=== PATIENT | male | born 1975 | race Caucasian/White ===

== ENCOUNTER 2018-12-16 08:50 | Outpatient (CLI) | payer OTHER, SELFPAY ==
--- NOTE | 2018-12-16 08:23 | DI.RAD_ITS ---
SYMPTOMS/DIAGNOSIS: F/U OF AC JOINT SEPARATION, RT AC JOINT PAIN RIGHT CLAVICLE: There has been no change in the alignment at the AC joint, with the clavicle projecting superior to the acromion. Calcifications are again noted in the subcoracoid region. Degenerative changes of the glenohumeral joint are again noted. IMPRESSION: No change in AC joint, degenerative changes or joint space loose bodies.
== END 2018-12-16 09:10 ==
PROVIDERS: PCP Emergency Medicine; Visit Provider Physician Assistant
DX: M25.511 Pain in right shoulder (principal); S43.101D Unspecified dislocation of right acromioclavicular joint, subsequent encounter
CPT/HCPCS: 73000

== ENCOUNTER 2019-03-13 01:15 | Outpatient (CLI) | payer OTHER, SELFPAY ==
--- NOTE | 2019-03-13 08:02 | DI.RAD_ITS ---
SYMPTOMS/DIAGNOSIS: PRIMARY OSTEOARTHRITIS, M19.011 RIGHT SHOULDER INJECTION: Fluoroscopy Time: 19.4 sec Under fluoroscopic guidance, Dr. Portillo positioned a needle in the right shoulder joint. Please see the procedure report for further information.
--- NOTE | 2019-03-13 10:09 | OPPNE_ITS ---
Date of service: 03/13/19 Time of Service: 10:08 Procedure Note Date of procedure: 03/13/19 Procedure: Right Shoulder Injection Surgeon/Proceduralist/Physician: Blake Portillo Procedure Diagnosis: Right Shoulder OA Procedure Indications: Michael has had persistent pain of the RIGHT shoulder. Noninvasive measures have been tried. To serve as both diagnostic and therapeutic, an injection under fluoroscopy was recommended. I had discussed the risks of the procedure and the patient elected to proceed. Procedure Description: Michael was greeted in the flouroscopy room. The correct side was identified and the consent was reviewed with the patient and signed. The patient was then placed in the supine position on the fluoroscopy table. The RIGHT shoulder was then prepped with Chloraprep. The anterior injection starting point was identiifed by bony landmarks and fluoroscopy. The skin and soft tissue in the tract of the injection was anesthetized with 1% Lidocaine. A spinal needle was then inserted deep into the shoulder joint at the level of the recess between the glenoid and superior humeral head. A small amount of Omn ipaque solution was injected to confirm intraarticular placement. Once confirmed, the shoulder was injected with 4cc of 0.5% Bupivicaine and 80mg of Depo-Medrol. A bandaid was placed on the injection site. The patient tolerated the procedure well and noted improvement in pre-injection pain.
[2019-03-13] MEDS: Omnipaque 300 MG/ML 10 ML BTL IJ (14:11)
[2019-03-13] MEDS: methylPREDNISolone ACETATE 80 MG/ML VIAL IM (14:11)
[2019-03-13] MEDS: Bupivacaine 0.5% Pres-Free 10 ML VIAL IJ (14:11)
== END 2019-03-13 01:35 ==
PROVIDERS: PCP Emergency Medicine; Visit Provider Student in an Organized Health Care Education/Training Program
DX: M19.011 Primary osteoarthritis, right shoulder (principal); M25.511 Pain in right shoulder
CPT/HCPCS: 20610; 77002; J1040

== ENCOUNTER 2020-08-04 14:35 | Outpatient (REF) | payer OTHER, SELFPAY ==
[2020-08-04 22:42] LABS: Anion Gap 9.1 mmol/L (3-11); BUN 10 mg/dL (7-18); CO2 28.9 mmol/L (21.0-32.0); CREATININE 1.25 mg/dL (0.70-1.30); Calcium 9.1 mg/dL (8.5-10.1); Calculated LDL 79 mg/dL (<100); Chloride 103 mmol/L (98-107); Cholesterol 165 mg/dL (<200); GGT 100 U/L (15-85); Glucose 116 mg/dL (74-106); HDL Cholesterol 48 mg/dL (40-60); Potassium 3.9 mmol/L (3.5-5.1); Sodium 141 mmol/L (136-145); Triglyceride 191 mg/dL (<150)
== END 2020-08-04 14:55 ==
LOC: LBN 14:35
PROVIDERS: PCP Emergency Medicine; Visit Provider Emergency Medicine
DX: I10 Essential (primary) hypertension (principal)
CPT/HCPCS: 80048; 80061; 82977

== ENCOUNTER 2021-08-18 15:17 | Outpatient (REF) | payer OTHER, SELFPAY ==
[2021-08-18 15:03] LABS: Hemoglobin A1C 5.4 % (<5.7)
[2021-08-18 15:07] LABS: ALT 49 U/L (16-63); AST 22 U/L (15-37); Albumin 4.1 g/dL (3.4-5.0); Alkaline Phosphatase 60 U/L (46-116); Anion Gap 6.4 mmol/L (3-11); BUN 14 mg/dL (7-18); Bilirubin, Direct 0.1 mg/dL (0.0-0.2); Bilirubin, Total 0.5 mg/dL (0.2-1.0); CO2 32.6 mmol/L (21.0-32.0); CREATININE 1.2 mg/dL (0.70-1.30); Calcium 9.2 mg/dL (8.5-10.1); Chloride 103 mmol/L (98-107); GGT 67 U/L (15-85); Glucose 92 mg/dL (74-106); Potassium 4.4 mmol/L (3.5-5.1); Sodium 142 mmol/L (136-145); Total Protein 7.5 g/dL (6.4-8.2)
== END 2021-08-18 15:18 | disposition home or self-care (01) ==
LOC: LBN 15:17
PROVIDERS: PCP Emergency Medicine; Visit Provider Emergency Medicine
DX: I10 Essential (primary) hypertension (principal); E11.9 Type 2 diabetes mellitus without complications; F10.10 Alcohol abuse, uncomplicated
CPT/HCPCS: 80048; 80076; 82977; 83036

== ENCOUNTER 2021-09-26 02:52 | Outpatient (CLI) | payer OTHER, SELFPAY ==
[2021-09-26 10:38] LABS: Source Nasal/Nares
[2021-09-26 14:26] LABS: COVID-19 PCR Negative (Negative)
== END 2021-09-26 02:53 | disposition home or self-care (01) ==
LOC: LBO 02:52
PROVIDERS: PCP Emergency Medicine; Visit Provider Surgery
DX: Z20.822 Contact with and (suspected) exposure to COVID-19 (principal)
CPT/HCPCS: 87635

== ENCOUNTER 2021-09-27 06:18 | Day surgery (SDC) | payer OTHER, SELFPAY ==
--- NOTE | 2021-09-26 14:13 | W.ANESPOSTOP ---
Postoperative Evaluation Date, Time and Location Date Performed: 09/26/21 Time Performed: 14:14 Patient Location: Day Surgery Unit Vital Signs Most Recent Manually Entered Vital Signs: Adult Blood Pressure: 169/68 Heart Rate: 67 Respirations: 18 Oxygen Saturation (%): 100 Temperature (C): 36.6 C Pain Score (0-10 Scale): 0 Assessment Mental Status: Awake (Alert & Oriented to Patient Baseline) Airway and Respiratory Function: Patent airway with normal (patient baseline) respiratory exam Cardiovascular Function: Hemodynamically Stable Hydration Status: Adequately Hydrated Nausea & Vomiting: No Nausea or Vomiting Pain: Pt. Denies Any Pain Peripheral Nerve Block: Patient did not receive a nerve block
--- NOTE | 2021-09-26 20:19 | HPE_ITS ---
Date of service: 09/27/21 Assessment and Plan Assessment and plan (1) Reducible right inguinal hernia: Status: Acute Assessment and plan: I discussed the nature of inguinal hernias with the pt . I discussed the surgery in detail and the complications related to the surgery and the anesthesia. Pt. understands this, all questions were answered to the patient satisfaction and they signed the consent for surgery. Patient was given an educational booklet. Risks of the surgery include but are not limited to: Bleeding/infection/pneumonia/damage to blood vessels or bladder or bowels/blood clots or PE/chronic pain/urinary retention/chronic numbness/reoccurrence/reaction to mesh requiring removal/damage to testicle or sterility/complications of anesthesia. The pt will have a pre-Op PE to ensure fitness for anesthesia. The procedure will be done with abx and under sterile conditions. The pt requires a ride home from surgery and someone to stay with the pt for 24 hrs after anesthesia. No lifting over 5 pounds for 2-3 weeks after surgery. He will need to take time off of work. History of Present Illness Narrative: RIH. Started to b/c painful.. No chronic coughing. No straining to urinate. Chronic constipation. When the hernia hurts he cannot move his bowels. He is currently on lifting restrictions. No prior surgery in the area. Pt is trying to make better lifestyle choices. No smoker/chews daily ETOH, NO PA/CVA/DM no prior anesthesia. No prior surgery Pt reports area in his right groin that has been present for years, recently I am changing what I am doing because of pain. Pt does note that he has white coat syndrome, just coming through the door changes everything. Adult BP cuff reading was 180/104, large cuff reading placed in history. Pt reports his pain is almost a zero this morning, gets worse at the end of the day or with lifting. Pt does report constipation in the pasts. Pt denies chest pain or any heart concerns in the past. Review of Systems All systems reviewed & are unremarkable except as noted in HPI and below PFSH Active Problem List Reducible right inguinal hernia (Acute) COVID (Acute) Biceps tendinitis of right shoulder (Chronic) Primary osteoarthritis, right shoulder (Chronic) Separation of right acromioclavicular joint, type 3 (Acute 11/23/17) Alcohol intake above recommended sensible limits (Acute) Chest pain (Acute) Essential hypertension (Acute) Inguinal hernia (Acute) Obesity (Acute) Continuous chewing tobacco dependence (Acute) Umbilical hernia without obstruction and without gangrene (Acute 04/03/18) Varicose veins of left lower extremity (Acute 02/29/16) Family History Father Heart disease Myocardial infarction Mother Essential hypertension Hyperlipidemia Sister No problems noted. Grandfather No problems noted. Grandfather Personal history of malignant neoplasm PROSTATE Grandmother Stroke Grandmother Stroke Social History Smoking/Tobacco Use Status: Current-Occasional Tobacco Type: smokeless tobacco Tobacco: How many years used: 30 Smokeless tobacco user: chewing tobacco Quit status: considering quitting Second Hand Exposure: Yes Smoking risk assessment performed?: Yes Alcohol Intake: current Alcohol Intake frequency: a few times a week Drug use: Never Substance use type: does not use Household members: spouse Housing: house Communication Needs: None Do you need help understanding health information?: Rarely Pets and animals: Yes Pets and animals: dog(s) Sexually active: Yes Do you think of yourself as: straight/heterosexual Current gender identity: male What is your relationship status?: How often do you talk on the phone with friends or family?: twice per week How often do you get together with friends or relatives?: once per week How often do you attend orthodoxy or faith services?: decline to answer Do you belong to any clubs or organized social groups?: no Panel score (0-1 are the most socially isolated patients): 2 Veronika/Adventism: Hoahaoism Special veronika needs: No Seatbelt use: always Helmet use: Yes Helmet use: always Drive intox or ride w/intox transfer driver: No Do you feel safe at home: Yes Do you feel safe in your relationship?: Yes Meds Allergies and Home Medications Allergies Allergy/AdvReac Type Severity Reaction Status Date / Time HAY FEVER Allergy Unknown Uncoded 09/26/21 10:16 Home Medications Medication Instructions Recorded Confirmed Type diphenhydramine HCl [Benadryl 25 mg PO DAILY PRN 02/05/13 09/26/21 History Allergy] multivitamin [Daily Multi-Vitamin] 1 ea PO DAILY 02/05/13 09/26/21 History hydrochlorothiazide 25 mg tablet 25 mg PO DAILY #90 tab 04/27/21 09/26/21 Rx aspirin 81 mg tablet,delayed 81 mg PO DAILY 09/05/21 09/26/21 History release loratadine 10 mg capsule 10 mg PO PRN cap 09/05/21 09/26/21 History Exam Resp Effort & Inspection: normal respiratory effort and able to speak in complete sentences Auscultation: clear to auscultation bilaterally Cardio Rate: regular rate Rhythm: regular rhythm GI Inspection: obesity Palpation: soft and nontender Auscultation: normal bowel sounds
--- NOTE | 2021-09-26 20:25 | PDOC.DSDIS_ITS ---
Discharge Plan Disposition Patient Disposition: HOME Condition: Good Discharge Details Reason For Visit: hernia repair Attending Provider: Nathaly Ortega Primary Care Provider: Alexis Rust Home Meds and New Rx's Prescriptions: New tramadol 50 mg tablet 50 mg PO Q6H PRN (Reason: pain >7) Qty: 14 RF: 0 Continued aspirin 81 mg tablet,delayed release (DR/EC) 81 mg PO DAILY RF: 0 multivitamin [Daily Multi-Vitamin] 1 EACH tablet 1 ea PO DAILY RF: 0 diphenhydramine HCl [Benadryl Allergy] 25 MG tablet 25 mg PO DAILY PRN RF: 0 hydrochlorothiazide 25 mg tablet 25 mg PO DAILY Qty: 90 RF: 4 loratadine [Claritin Liqui-Gel] 10 mg capsule 10 mg PO PRN RF: 0 Discharge Instructions Additional Instructions: Dr. Ortega HERNIA REPAIR ? POSTOPERATIVE INSTRUCTIONS Patients who have this type of surgery can usually be expected to return to work within two weeks and have minimal amounts of discomfort. ? ACTIVITY: The day of surgery should be spent resting. However, you can be up f or short periods of time, I.E., going to the bathroom or kitchen. Avoid lifting or straining. On the day following surgery, you can be up and about as desired. ? LIFTING: Restrict your lifting to no more than five (5) pounds for the first week following surgery. For the second week after surgery, don?t lift more than ten pounds. We will decide when you are done with restrictions and when you can return to work, at your follow-up appointment. No sexual activity for two weeks. ? DIET: There are no dietary restrictions following surgery. However, you may want to start with small amounts of liquids to avoid nausea the day of surgery. ? INCISION CARE: You will notice purple skin glue closing the incision. Do not peel this off- it will wear off on its own. After 24 hours you may shower. The dressing may be replaced for comfort, but is not necessary. An ice bag may be applied to the incision for 72 hours following surgery. ? SIGNS OF INFECTION: It is not unusual to have some black and blue discoloration of the skin around the incision, but also scrotum and penis. It will slowly disappear. If you have any increased redness, drainage, fever (above 100 degrees), please contact your doctor for an examination. ? DISCOMFORT: You may expect to have some mild discomfort at the incision sight. If severe pain develops you should contact your doctor for further instructions. ? URINATION: Patients who have surgery occasionally have problems urinating. If you experience problems and are not able to urinate within 6 hours following your surgery, please call your doctor immediately or go to your nearest Emergency Room for evaluation. ? DRIVING: NO driving for three (3) days after surgery, or if you are still taking narcotic pain medication. ? MEDICATIONS: Alternate Tylenol 1000mg by mouth every 8 hours and Ibuprofen 600mg every 6 hours. Make sure you take ibuprofen with food and not on an empty stomach. Take the Tylenol and ibuprofen continuously for the first 72hrs- not just when you have pain. Use the tramadol for breakthrough pain. Use ICE! Twenty minutes on, and then off, continuously for the first 72hours. If you are taking narcotic pain medication, follow the instructions on the label and do not drive. Pain medications can make you very constipated. Make sure you are moving your bowels daily. If not, take Miralax, milk of magnesia or magnesium citrate. Anesthesia makes you very constipated. Take a dose of milk of magnesia the morning after surgery. ? REPORT: Unusual swelling, severe pain, unresolved nausea, signs of infection, or difficulty in urination to your surgeon. Follow up in clinic with Dr. Ortega in 2 weeks. [phone] Stand Alone Forms: Anesthesia Discharge InstVani Bhat.Nerve Block Instructions Referrals: Nathaly Ortega DO [OSTEOPATHIC DOCTOR] - 10/13/21 10:30 am Activity:: see above Remove Dressings/Wound Care:: 24 hours Shower/Bathe:: 24 hours Diet:: As Tolerated Discharge Orders Discharge Orders: Discharge Order (Routine); Ordered 09/26/21 Ordered By: Nathaly Ortega DS: Diagnosis Discharge Diagnosis (1) Reducible right inguinal hernia: Status: Acute
[2021-09-27] VITALS (11 sets, daily range): BP systolic 107–146; BP diastolic 49–95; PULSE 69–81; RESP 16–25; TEMP 35.7–36.5; O2SAT 95–99; BMI 35.7
--- NOTE | 2021-09-27 06:39 | W.ANESPRE ---
General Info Date of Service Date Performed: 09/27/21 Height: 6 ft 2 in Weight: 126.4 kg Body Mass Index (BMI): 35.7 Surgical Procedure: Operation Date: 09/27/21 07:40 Proposed Procedures Side Surgeon p Herniorrhaphy Inguinal Right Nathaly Ortega DO Meds Allergies and Home Medications Allergies Allergy/AdvReac Type Severity Reaction Status Date / Time HAY FEVER Allergy Unknown Uncoded 09/27/21 06:33 Home Medication Medication Instructions Recorded diphenhydramine HCl [Benadryl 25 mg PO DAILY PRN 02/05/13 Allergy] multivitamin [Daily Multi-Vitamin] 1 ea PO DAILY 02/05/13 hydrochlorothiazide 25 mg tablet 25 mg PO DAILY #90 tab 04/27/21 aspirin 81 mg tablet,delayed 81 mg PO DAILY 09/05/21 release loratadine 10 mg capsule 10 mg PO PRN cap 09/05/21 Current Visit Medications: Current Medications Generic Name Dose Route Start Last Admin Trade Name Freq PRN Reason Stop Dose Admin Acetaminophen 1,000 mg 09/27/21 06:00 Acetaminophen 500 Mg Tab PO 09/27/21 16:00 PREOP EUGENE Gabapentin 600 mg 09/27/21 06:00 Gabapentin 300 Mg Cap PO 09/27/21 16:00 PREOP EUGENE Ringer's Solution 1,000 mls @ 80 mls/hr 09/27/21 06:00 IV 10/26/21 23:59 INFUSION EUGENE Cefazolin Sodium/Dextrose 2 gm in 50 mls @ 100 mls/hr 09/27/21 06:00 Ancef Duplex IVPB 09/27/21 16:00 PREOP EUGENE Ondansetron HCl 4 mg/ Sodium 52 mls @ 200 mls/hr 09/26/21 20:24 Chloride IVPB Q6H PRN PRN IV Miscellaneous Supplies 1 each 09/27/21 06:00 Iv Access IV 10/26/21 23:59 DIRECTED EUGENE Morphine Sulfate 2 mg 09/26/21 20:24 Morphine 4 Mg/Ml Syr IVP Q1H PRN PRN Sodium Chloride 0 ml 09/27/21 06:00 Normal Saline Flush 10 Ml Syr IV 10/26/21 23:59 PRN PRN Sodium Chloride 0 ml 09/27/21 06:00 Normal Saline 10 Ml Vial IJ 10/26/21 23:59 DIRECTED PRN Sterile Water 0 ml 09/27/21 06:00 Water,Injection,Sterile 10 Ml Vial IJ 10/26/21 23:59 DIRECTED PRN Tramadol HCl 50 mg 09/26/21 20:24 Tramadol 50 Mg Tab PO Q6H PRN PRN Pain PFSH Active Problems Active Problems: Problem Status Onset Code Reducible right inguinal hernia K40.90 COVID U07.1 Biceps tendinitis of right shoulder M75.21 Primary osteoarthritis, right shoulder M19.011 Separation of right acromioclavicular joint, type 3 11/23/17 S43.101A Alcohol intake above recommended sensible limits Z72.89 Chest pain R07.9 Essential hypertension I10 Inguinal hernia K40.90 Obesity E66.9 Continuous chewing tobacco dependence F17.220 Umbilical hernia without obstruction and without gangrene 04/03/18 K42.9 Varicose veins of left lower extremity 02/29/16 I83.92 Medical History Active Problem List Reducible right inguinal hernia (Acute) COVID (Acute) Biceps tendinitis of right shoulder (Chronic) Primary osteoarthritis, right shoulder (Chronic) Separation of right acromioclavicular joint, type 3 (Acute 11/23/17) Alcohol intake above recommended sensible limits (Acute) Chest pain (Acute) Essential hypertension (Acute) Inguinal hernia (Acute) Obesity (Acute) Continuous chewing tobacco dependence (Acute) Umbilical hernia without obstruction and without gangrene (Acute 04/03/18) Varicose veins of left lower extremity (Acute 02/29/16) Tobacco Smoking/Tobacco Use Status: Current-Occasional Tobacco Type: smokeless tobacco Tobacco: How many years used: 30 Smokeless tobacco user: chewing tobacco Quit Status: considering quitting Second hand exposure: Yes Alcohol Alcohol Intake: current Alcohol intake frequency: a few times a week Substance Use Substance use: Never Substance use type: does not use Vital Signs and Lab Results Vital Signs Most Recent Vital Signs in EMR: Most Recent Vital Signs Temp Pulse Resp BP Pulse Ox 36.5 C 75 18 146/95 H 97 09/27/21 06:37 09/27/21 06:37 09/27/21 06:37 09/27/21 06:37 09/27/21 06:37 Lab Results Blood Type / Crossmatch: No Data to Display Complete Blood Count: No Data to Display Complete Metabolic Panel: No Data to Display Liver Function Panel: No Data to Display Coagulation Panel: No Data to Display Cardiac Panel: No Data to Display Arterial Blood Gas: No Data to Display Venous Blood Gas: No Data to Display Pancreas Panel: No Data to Display Thyroid Panel: No Data to Display Infectious Disease: Coronavirus (COVID-19)(PCR) Negative (Negative) 09/26/21 09:25 09/26/21 Coronavirus 2019 Source Nasal/Nares 09/26/21 09:25 09/26/21 Blood Cultures: No Data to Display Toxicology Panel: No Data to Display Anesthesia Assessment and Plan Anesthesia History Personal History: No History of Anesthesia Complications Family History: No Family History of Anesthesia Complications Exercise Tolerance Exercise Tolerance: Metabolic Equivalents>4 Pertinent Negatives Pertinent Negatives: No Symptoms of GERD, No Major Cardiovascular Symptoms or Complaints, No Major Pulmonary Symptoms or Complaints and No History of CVA/TIA Cardiac & Pulmonary Exam Cardiac Exam: Normal S1/S2 Heart Sounds Pulmonary Exam: Clear Bilateral Breath Sounds Implantable Cardiac Device Does patient have a Pacemaker or an ICD?: No Airway Exam Known Difficult Airway: No Mallampati Class: 2 Mouth Opening: Normal (> 3cm) Thyromental Distance: Greater than 3 cm Facial Hair: Full [place] Neck Range of Motion: Full ROM Neck Circumference: Thick Teeth Condition: Normal Dentition ASA Classification ASA Score: ASA 2 Emergency Case?: No NPO Status NPO Status: NPO Clears >2 hours, Solids >8 hours Anesthesia Plan Resuscitation Status: Full Code Anesthesia Technique: General Anesthesia Airway Planned: Endotracheal Tube Pain Management: Surgeon and patient request nerve block Monitors Used: Standard Monitors
[2021-09-27] MEDS: Gabapentin 300 MG CAP 600 MG PO (06:43)
[2021-09-27] MEDS: Acetaminophen 500 MG TAB 1000 MG PO (06:43)
[2021-09-27] MEDS: Lactated Ringers 1,000 ML 80 ML IV (06:44)
[2021-09-27] MEDS: ceFAZolin 2 GM/50 ML BAG IVPB (07:44)
--- NOTE | 2021-09-27 08:31 | W.ANESNERVE ---
Nerve Block Single Injection Procedure Date and Time Date Performed: 09/27/21 Procedure Start: 07:54 Location Where Procedure Performed Procedure Location: Operating Room Procedure Stop: 08:04 Reason Performed: Postoperative Analgesia Requesting Provider: Nathaly Ortega Timeout Performed Timeout Performed: Yes Monitoring Used ECG, Blood Pressure, SpO2, ETCO2 and See EMR for corresponding vital signs Sterility Sterility: Hand Hygiene, Surgical Cap, Surgical Mask, Eye Protection and Chlorhexidine Sedation Given During Procedure Sedation Given (Indicate Dose Given): No Sedation given Patient Mental Status Patient Mental Status: Performed under general anesthesia Nerve Block 1st Nerve Block: Laterality: Right Block Type: TAP Unilateral Needle / Catheter Used: 120mm SonoPlex II Local Anesthetic Bolus (Indicate Dose Given): Injected in 3-5ml increments after negative blood aspiration, Bupivacaine 0.25% Dose:: 20 ml, Exparel Dose:: 10 ml and Ropivacaine 0.5% Dose:: 10 ml Additives (Indicate Dose Given): None Ultrasound: Sterile probe cover and gel used Ultrasound Image Saved?: Yes Nerve Stimulator: Not Used Paresthesia: None Procedure Tolerated: No Complications Procedure Outcome: Successful Performed By: Marylu Armstrong Supervised By: Brigette Adler
[2021-09-27] MEDS: Bupivacaine 0.25% Pres-Free 30 ML VIAL (10:00)
[2021-09-27] MEDS: Bupivacaine LIPOSOME/PF 133 MG/10 ML VIAL IJ (10:00)
--- NOTE | 2021-09-27 12:06 | W.ANESPOSTOP ---
Postoperative Evaluation Date, Time and Location Date Performed: 09/27/21 Time Performed: 12:06 Patient Location: Day Surgery Unit Vital Signs Most Recent Imported Vital Signs: Most Recent Vital Signs Temp Pulse Resp BP Pulse Ox 35.7 C L 71 18 124/84 96 09/27/21 11:37 09/27/21 11:37 09/27/21 11:37 09/27/21 11:37 09/27/21 11:37 Pain Score Most Recent Pain Score: Most Recent Pain Score Pain Level 0 09/27/21 11:55 Assessment Mental Status: Awake (Alert & Oriented to Patient Baseline) Airway and Respiratory Function: Patent airway with normal (patient baseline) respiratory exam Cardiovascular Function: Hemodynamically Stable Hydration Status: Adequately Hydrated Nausea & Vomiting: No Nausea or Vomiting Pain: Pt. Denies Any Pain Peripheral Nerve Block: Regional nerve block not resolved at time of post operative discharge
--- NOTE | 2021-09-27 22:30 | W.PM.OP ---
Date of service: 09/27/21 Time of Service: 10:00 Operative Note Operative Note DATE OF PROCEDURE: 09/27/21 PRE-OP DIAGNOSIS: symptomatic RIH POST-OP DIAGNOSIS: other (Indirect inguinal hernia and sac containing bowel- Moore's. And hydrocele) PROCEDURE: Open inguinal hernia repair with mesh. Excision and high ligation of the sac. Excision in the high ligation of omentum. Reduction and repair of hydrocele. Reconstruction of floor of the inguinal canal. SURGEON: Nathaly Jaramillo [employer] CRAFTSMAN: Valeria Stevens ANESTHESIA TYPE: Local By Surgeon, General LMA/ETT and Primary Nerve Block Refer to Anesthesia Record ESTIMATED BLOOD LOSS: 30 PATHOLOGY: none sent COMPLICATIONS: None Patient was transported to: PACU Patient's condition: stable Procedure Description: INDICATIONS: The pt is here today for surgery regarding symptomatic --- inguinal hernia that has failed outpatient conservative medical management and he is here today for repair. Informed consent was obtained, explaining risks and benefits of the procedure including but not limited to bleeding, infection, pneumonia, blood clots, chronic pain, chronic numbness, damage to testicle resulting in removal, recurrence of hernia, reaction to Mesh necessitating removal, and other unforetold complications, and complications of anesthesia-which were addressed by the VP [employer]. The patient is marked in preOp prior to the procedure DESCRIPTION OF PROCEDURE: The pt is then brought to the operative room suite. Anesthesia was administered per the Department of Anesthesia. A nerve block was performed by anesthesia under US guidance. the patient was prepped and draped in the usual sterile fashion using ChloraPrep scrub solution. Pause for the cause was done. He did receive preop IV antibiotics, and 30 mL of .25% Marcaine w/ epinephrine was used for local anesthetization. A #12 blade was used to make an incision over the external ring. Electrocautery used to provide hemostasis and dissect down to the fascia. The fascia was pretty much obliterated and there was nothing to open. 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 Considerable amount of time is taken to excise the sac the sac is opened the cecum and appendix do form portion of the wall of the sac. The sac is excised using the LigaSure. The cecum was then returned to the abdominal cavity. He has a large amount of omentum that is protruding through the hernia defect as well. This is excised using a LigaSure. The cord is elevated. The nerve was not identified. There medium is a cord lipomas. Electro-cautery is used to provide hemostasis. A Juan drain was placed around the cord to assist in mobilization. The cord was explored. There was is large 4 hernia sac on the cord. The sac is dissected off of the cord structures. The sac is opened. He does have a Moore's type of hernia where the appendix and cecum make up the wall of the hernia sac. The hernia sac is excised. The cecum and appendix are returned to the abdominal cavity. The appendix is healthy. He has a 6 x 8 inch piece of omentum that is protruding through the hernia defect as well. This is excised using LigaSure. There is no bleeding noted. The hernia sac does extend all the way down to the text testicle. He does have the hydrocele as well. Once we got to the hydrocele sac itself, we then opened and delivered the testis, drained clear fluid. There was moderate amount of scarring on the testis itself from the tunica vaginalis. It was then wrapped around the back and sutured in place with a running suture of 4-0 chromic in a Lord maneuver. Once this was done, a drain was placed in the base of the scrotum and then the testis was placed back into the scrotum in the proper orientation. A similar procedure was performed on the left, which has also had a hydrocele of the cord, which were both addressed and closed with Lord maneuver similarly. This testis also was normal but had moderate amount of scarring on the tunic vaginalis from this. A similar drain was placed. The testes were then placed back into the scrotum in a proper orientation, and the local wound instillation and wound block was then placed using 30 mL of 0.5% Marcaine without epinephrine. There is direct hernia pushing through the floor-. The hernia sac is dissected off the cord using a combination of blunt dissection and electrocautery. Electrocautery is used to provide hemostasis. returned to the abdominal cavity. A 3 x 6 inch piece of mesh is used to create a larger than normal standard plug and this is placed into the defect. The plug is than inserted into the defect through the internal ring, and over sewn to tighten up the ring with 2-0 vicryl. Please see RN notes from Lot number mesh . The cord structures are still able to freely move through the ring itself. The patch was then placed onto the floor, and using 2-0 Vicryl, sewn into the pubic tubercle and the shelving portions of the inguinal ligament, in the standard Lichenstein fashion. The tails of the mesh are brought around the cord, sewn together w/ 2-0 Vicryl, and tucked under the external oblique. The wound was copiously irrigated. There was no bleeding noted. The drain was removed. All structures are returned to normal anatomical position. The nerve is not sewn into the mesh, nor caught up in any sutures. The external oblique is re-approximated using 2-0 vicryl in a running fashion. Deep tissue was approximated with 3-0 Vicryl in a running fashion, and skin was approximated with 4-0 Monocryl in a running subcuticular fashion. Skin glue and sterile dressings are applied. The patient tolerated the procedure without complications to recovery in stable condition. NATHALY JARAMILLO, DO
== END 2021-09-27 13:20 | disposition home or self-care (01) ==
PROVIDERS: PCP Emergency Medicine; Visit Provider Surgery
PROC: (CPT 49505; principal; 2021-09-27 07:30)
DX: K40.90 Unilateral inguinal hernia, without obstruction or gangrene, not specified as recurrent (principal); N43.3 Hydrocele, unspecified; E66.9 Obesity, unspecified; I10 Essential (primary) hypertension; F17.220 Nicotine dependence, chewing tobacco, uncomplicated
CPT/HCPCS: 49505; 55500; 76942; C1781; J0690; J1100; J1885; J2001; J2250; J2405; J2704

== ENCOUNTER 2021-12-19 01:15 | Outpatient (CLI) | payer BC, SELFPAY ==
[2021-12-19] MEDS: Omnipaque 350 MG/ML 100 ML BTL IJ (14:47)
--- NOTE | 2021-12-19 14:48 | DI.CT_ITS ---
Exam(s) CT ABDOMEN PELVIS W EXAM: CT ABDOMEN PELVIS W CLINICAL HISTORY: RT testicular fluid after hernia/hydrocele repair,N50.89,Z98.890. TECHNIQUE: Imaging Protocol: Axial computed tomography images with coronal and sagittal reformatted images were created and reviewed CONTRAST MATERIAL: Intravenous: Omnipaque 350 Contrast volume:100 ml Oral: yes COMPARISON: US US OR ANESTHESIA from 09/27/2021 US US SCROTUM from 10/28/2021 FINDINGS: ABDOMEN: Lung Bases: Normal where visualized. Liver: Moderate fatty infiltration.. No measurable mass. Gallbladder and biliary tract: No radiodense calculus or dilation. Pancreas: Normal density, no abnormal calcifications or inflammatory process. Spleen: Normal. Kidneys: Normal size, contour and axis. No radiodense stones or obstructive uropathy. No masses seen. Cyst upper pole left kidney. Adrenal glands: No masses seen. Abdominal Aorta: Abdominal portion non-dilated. Soft tissues: Fatty containing umbilical hernia. PELVIS: Bladder: No gross wall thickening. No calculi.No focal mass. Bowel: Mild sigmoid diverticulosis. No obstruction or bowel wall thickening. Appendix normal. Peritoneal cavity: No ascites, collection or mesenteric inflammatory response. Bones: degenerative disc changes. Reproductive organs: Within normal limits. Lymph nodes: Unremarkable. Soft tissues: Evidence of previous right inguinal hernia repair. Fluid is identified in the right sc rotal sac which is partially included on the exam. There is a small fatty containing left inguinal h ernia present. Impression: Fluid in the right scrotal sac, partially included on the exam. Prior right inguinal hernia repair. Fatty containing left inguinal hernia. No acute abnormality is seen intra-abdominally. RADIATION DOSE DELIVERED: 1,645.41mGy.cm Total DLP DATA REPOSITORY: All CT scans at this facility are submitted to the National Radiology Data Registry (NRDR) Dose Index Registry (DIR) with the [employer] (ACR). RADIATION OPTIMIZATION: All CT scans at this facility use at least one of these dose optimization te chniques: automated exposure control; mA and/or kV adjustment per patient size (includes targeted exa ms where dose is matched to clinical indication); or iterative reconstruction.
[2021-12-19] MEDS: Breeza Beverage 473 ML BTL 950 ML PO (14:50)
== END 2021-12-19 01:35 ==
PROVIDERS: PCP Emergency Medicine; Visit Provider Surgery
DX: N50.89 Other specified disorders of the male genital organs (principal); K76.0 Fatty (change of) liver, not elsewhere classified; K42.9 Umbilical hernia without obstruction or gangrene; K40.90 Unilateral inguinal hernia, without obstruction or gangrene, not specified as recurrent; Z98.890 Other specified postprocedural states
CPT/HCPCS: 74177; 82565; J3490

== ENCOUNTER 2022-01-10 12:04 | Outpatient (CLI) | payer BC, SELFPAY ==
[2022-01-10 13:02] LABS: Abs Immature Grans 0.11 10^3/uL (0.0-0.06); Absolute Basophil Count 0.06 10^3/uL (0.0-0.2); Absolute Eosinophil Count 0.03 10^3/uL (0.0-0.7); Basophils % 0.4; Eosinophils % 0.2; HCT 45.2 % (40.0-50.0); HGB 15.1 g/dL (13.5-17.5); Immature Grans % 0.8; Lymphocytes % 19.4; MCH 28.9 pg (27.0-33.0); MCHC 33.4 % (32.0-36.0); MCV 86.6 fL (80-95); MPV 10.4 fL (8.0-11.0); Monocytes % 11.9; Neutrophils % 67.3; Nucleated RBC 0 %; Platelet Count 254 10^3/uL (130-400); RBC 5.22 10^6/uL (4.36-5.78); RDW 12.9 % (11.8-14.1); RDW-SD 40.2 fL; WBC 14.16 10^3/uL (4.4-10.8)
[2022-01-10 13:04] LABS: Absolute Lymphocyte Count 2.75 10^3/uL (1.2-3.4); Absolute Monocyte Count 1.69 10^3/uL (0.1-0.8); Absolute Neutrophil Count 9.53 10^3/uL (1.2-6.7)
[2022-01-10 13:13] LABS: C-Reactive Protein 8.54 mg/dL (0.0-0.3)
[2022-01-10 13:15] LABS: Diff Comment Diff Reviewed; RBC Morphology Normal
== END 2022-01-10 12:05 | disposition home or self-care (01) ==
LOC: LBO 12:06
PROVIDERS: PCP Emergency Medicine; Visit Provider Surgery
DX: Z87.19 Personal history of other diseases of the digestive system (principal); Z87.438 Personal history of other diseases of male genital organs; Z98.890 Other specified postprocedural states
CPT/HCPCS: 36415; 85025; 86140

== ENCOUNTER 2022-01-23 09:37 | Inpatient (IN) | payer BC, SELFPAY ==
--- NOTE | 2022-01-23 | DI.US_ITS ---
Exam(s) US SCROTUM EXAM: US SCROTUM CLINICAL HISTORY: s/p R ing hernia repair/chronic drainage/acute inf TECHNIQUE: Ultrasound of the testes performed using grayscale, color, and Doppler imaging. COMPARISON: CT CT ABDOMEN PELVIS W from 12/19/2021 FINDINGS: Images are submitted for interpretation RIGHT HEMISCROTUM: Right testicle measures 3.6 x 2.1 x 2.9 cm and exhibits both arterial and venous blood flow therein. There is no hydrocele or varicocele. However, there are 2 separate abnormal findings in the right h emiscrotum. One of these measures 3.3 x 2.3 x 3.3 cm and is intimately associated with the testicle although appearing extrinsic to the testicle and is probably an abnormally enlarged epididymis. Secondly, there is a larger heterogeneous hyperemic collection measuring 5.5 x 2.8 x 3.8 cm which has the appearance of a probable abscess. Some edema is noted in the right groin. LEFT HEMISCROTUM: The left testicle exhibits normal size and echo architecture with no evidence of intratesticular mass . Vascular flow is demonstrated within the left testicle, including arterial waveforms. The epididymis appears unremarkable. There are no epididymal head cysts. There is no ipsilateral hydrocele or varicocele. IMPRESSION: 1. Significant findings in the right hemiscrotum as described above. There is a heterogeneous collec tion measures approximately 5.5 x 2.8 x 3.8 cm which is located superior and lateral to the testicle and either represents hematoma or infected hematoma/abscess. 2. Second smaller finding as described above measures 3.3 x 2.3 x 3 cm and is intimately associated w ith the left testicle and probably represents abnormally enlarged epididymis, possibly with abscess i nvolvement. 3. Vascular flow is demonstrated in the ipsilateral right testicle. No significant findings in the opposite-left hemiscrotum. DATA REPOSITORY:
[2022-01-23 10:20] VITALS: BP 135/91; PULSE 103; RESP 12; TEMP 36.5; O2SAT 96
[2022-01-23 10:47] LABS: Abs Immature Grans 0.23 10^3/uL (0.0-0.06); Absolute Basophil Count 0.08 10^3/uL (0.0-0.2); Absolute Lymphocyte Count 2.16 10^3/uL (1.2-3.4); Basophils % 0.4; HGB 13.2 g/dL (13.5-17.5); Immature Grans % 1.1; Lymphocytes % 10.7; MCH 28.6 pg (27.0-33.0); MCV 86.6 fL (80-95); MPV 10.3 fL (8.0-11.0); Monocytes % 7.7; Neutrophils % 80.1; Nucleated RBC 0 %; Platelet Count 333 10^3/uL (130-400); RBC 4.62 10^6/uL (4.36-5.78); RDW 12.2 % (11.8-14.1); RDW-SD 38.8 fL; WBC 20.15 10^3/uL (4.4-10.8)
[2022-01-23 11:04] LABS: Absolute Monocyte Count 1.55 10^3/uL (0.1-0.8); Absolute Neutrophil Count 16.14 10^3/uL (1.2-6.7)
[2022-01-23 11:06] LABS: ALT 27 U/L (16-63); AST 12 U/L (15-37); Albumin 3.5 g/dL (3.4-5.0); Alkaline Phosphatase 76 U/L (46-116); Anion Gap 10.4 mmol/L (3-11); BUN 16 mg/dL (7-18); Bilirubin, Total 0.8 mg/dL (0.2-1.0); C-Reactive Protein 18.81 mg/dL (0.0-0.3); CO2 26.6 mmol/L (21.0-32.0); CREATININE 1.2 mg/dL (0.70-1.30); Chloride 96 mmol/L (98-107); Glucose 155 mg/dL (74-106); Potassium 3.4 mmol/L (3.5-5.1); Sodium 133 mmol/L (136-145); Total Protein 8.8 g/dL (6.4-8.2)
[2022-01-23] MEDS: Acetaminophen 500 MG TAB 1000 MG PO ×3 (11:10→21:19)
[2022-01-23] MEDS: Normal Saline 1,000 ML 125 ML IV (11:11)
[2022-01-23] MEDS: VANCOMYCIN/WATER (PEG) 1 GM/200 ML BAG IVPB ×2 (11:11→15:02)
[2022-01-23 11:13] LABS: Diff Comment Diff Reviewed
[2022-01-23 11:14] LABS: RBC Morphology Normal
--- NOTE | 2022-01-23 11:18 | HPE_ITS ---
Date of service: 01/23/22 Time of Service: 11:18 Assessment and Plan Assessment and plan (1) S/P repair of hydrocele: Status: Acute (2) Postoperative infection: Status: Acute Assessment and plan: Patient admitted for post-op infection. Start IV vancomycin Wound and Blood cultures ordered Ordered Urgent Scrotal US Urology consult requested Pulmonary Toilet Strongly encouraged ambulation and activity as tolerated. NPO I did review the case with Dr. Kwan. We are waiting for the ultrasound results-to see if there are any areas that need to be drained or debrided. History of Present Illness Narrative: 46 y/o male with a history of HTN well known to the surgical office presented to the surgical office today with complaints of low grade fevers, chills and malaise over the weekend. The patient intially underwent an open right inguinal hernia repair that contained bowel and removal of hydrocele on 09/27/21. on 10/28/21 an Ultrasound was performed of the right testicle for further evaluation of significant post-op swelling. US showed large right septated hydrocle. on he under went need aspiration and drainage of the hydrocele of his right testicle. On 12/[address] scan for further evaluation of recurrence and continued hydrocele. This showed Fluid in the right scrotal sac, partially included on the exam.? Prior right inguinal hernia repair.? Fatty containing left inguinal hernia.? No acute abnormality is seen intra-abdominally. Urology was consulted and Dr. Ortega placed a karla drain on 01/02/22 which was then removed 01/09 to allow evacuation of the fluid and to allow for the soft tissue to scar down and to prevent recurrence. This was complicated by infection and the patient was started on Augmentin and was followed closely as an out patient by Dr. Ortega. Today he states that he completed a course of antibiotics on 01/17 and progressively starting feeling worse. He noted thick, brown/yellow drainage which was foul smelling. This has since stopped. He states that his testicle is painful at times and this is often a sharp pain. PFSH All Active Problems (Updated 01/10/22 @ 13:34 by Nathaly Ortega, ) Varicose veins of left lower extremity (Acute 02/29/16) Umbilical hernia without obstruction and without gangrene (Acute 04/03/18) Continuous chewing tobacco dependence (Acute) CHEW Obesity (Acute) Essential hypertension (Acute) Chest pain (Acute) NEG STRESS TEST 2002 Alcohol intake above recommended sensible limits (Acute) H/O DWI Separation of right acromioclavicular joint, type 3 (Acute 11/23/17) Primary osteoarthritis, right shoulder (Chronic) Post Traumatic from AC separation 11/23/2017 Injected AC joint: 12/16/2018 Biceps tendinitis of right shoulder (Chronic) Intra-articular injection: 03/13/2019 COVID (Acute) 10/10 vaccinated Postoperative seroma (Acute) Status post right inguinal hernia repair (Acute) S/P repair of hydrocele (Acute) right Postoperative infection (Acute) Active Problem List Reducible right inguinal hernia (Acute) COVID (Acute) Biceps tendinitis of right shoulder (Chronic) Primary osteoarthritis, right shoulder (Chronic) Separation of right acromioclavicular joint, type 3 (Acute 11/23/17) Alcohol intake above recommended sensible limits (Acute) Chest pain (Acute) Essential hypertension (Acute) Inguinal hernia (Acute) Obesity (Acute) Continuous chewing tobacco dependence (Acute) Umbilical hernia without obstruction and without gangrene (Acute 04/03/18) Varicose veins of left lower extremity (Acute 02/29/16) Family History Father Heart disease Myocardial infarction Mother Essential hypertension Hyperlipidemia Sister No problems noted. Grandfather No problems noted. Grandfather Personal history of malignant neoplasm PROSTATE Grandmother Stroke Grandmother Stroke Social History Smoking/Tobacco Use Status: Current-Occasional Tobacco Type: smokeless tobacco Tobacco: How many years used: 30 Smokeless tobacco user: chewing tobacco Quit status: considering quitting Second Hand Exposure: Yes Smoking risk assessment performed?: Yes Alcohol Intake: current Alcohol Intake frequency: a few times a week Drug use: Never Substance use type: does not use Household members: spouse Housing: house Communication Needs: None Do you need help understanding health information?: Rarely Pets and animals: Yes Pets and animals: dog(s) Sexually active: Yes Do you think of yourself as: straight/heterosexual Current gender identity: male What is your relationship status?: How often do you talk on the phone with friends or family?: twice per week How often do you get together with friends or relatives?: once per week How often do you attend restoration or scientologist services?: decline to answer Do you belong to any clubs or organized social groups?: no Panel score (0-1 are the most socially isolated patients): 2 Veronika/Episcopal: Confucianism Special veronika needs: No Seatbelt use: always Helmet use: Yes Helmet use: always Drive intox or ride w/intox transport driver: No Do you feel safe at home: Yes Do you feel safe in your relationship?: Yes Meds Allergies and Home Medications Allergies Allergy/AdvReac Type Severity Reaction Status Date / Time HAY FEVER Allergy Unknown Uncoded 01/23/22 09:09 Home Medications Medication Instructions Recorded Confirmed Type diphenhydramine HCl 25 mg tablet 25 mg PO DAILY PRN 02/05/13 01/23/22 History (Benadryl Allergy) multivitamin (Daily Multi-Vitamin) 1 ea PO DAILY 02/05/13 01/23/22 History hydrochlorothiazide 25 mg tablet 25 mg PO DAILY #90 tab 04/27/21 01/23/22 Rx loratadine 10 mg capsule (Claritin 10 mg PO PRN cap 09/05/21 01/23/22 History Liqui-Gel) acetaminophen 500 mg tablet 1,000 mg PO Q6H PRN tab 12/05/21 01/23/22 History (Tylenol Extra Strength) ibuprofen 200 mg tablet 600 mg PO Q6H PRN tab 12/05/21 01/23/22 History tramadol 50 mg tablet 50 mg PO Q6H PRN #7 tab 01/02/22 01/23/22 Rx L. acidophilus,casei,rhamnosus 50 1 cap PO DAILY #30 cap 01/10/22 01/23/22 Rx billion cell capsule,delayed release (Bio-K plus) Exam Const General: cooperative and ill appearing Orientation: alert and oriented x3 Resp Effort & Inspection: normal respiratory effort, no audible wheezes and no cough Results Labs Result diagrams: 01/23/22 10:35 01/23/22 10:35 Labs: Laboratory Results - last 24 hr 01/23/22 01/23/22 10:35 10:35 WBC 20.15 H RBC 4.62 Hgb 13.2 L Hct 40.0 MCV 86.6 MCH 28.6 MCHC 33.0 RDW 12.2 Plt Count 333 MPV 10.3 Immature Gran % 1.1 Neutrophils % 80.1 Lymphocytes % 10.7 Monocytes % 7.7 Eosinophils % 0.0 Basophils % 0.4 Nucleated RBC % 0 Absolute Neutrophils 16.14 H Absolute Lymphocytes 2.16 Absolute Monocytes 1.55 H Absolute Eosinophils 0.00 Absolute Basophils 0.08 RBC Morphology Normal Sodium 133 L Potassium 3.4 L Chloride 96 L Carbon Dioxide 26.6 Anion Gap 10.4 BUN 16 Creatinine 1.2 Estimated GFR/1.73 m2 >= 60.00 Glucose 155 H Calcium 9.0 Total Bilirubin 0.8 AST 12 L ALT 27 Alkaline Phosphatase 76 C-Reactive Protein 18.81 H Total Protein 8.8 H Albumin 3.5 Last Vital Signs Temp 36.5 C 01/23/22 10:20 Pulse 103 H 01/23/22 10:20 Resp 12 01/23/22 10:20 BP 135/91 H 01/23/22 10:20 Pulse Ox 96 01/23/22 10:20
[2022-01-23 11:21] VITALS: BP 135/91; PULSE 103; RESP 12; TEMP 36.5; O2SAT 96
--- NOTE | 2022-01-23 12:54 | W.ANESPRE ---
General Info Date of Service Date Performed: 01/23/22 Height: 6 ft 3 in Weight: 127.2 kg Body Mass Index (BMI): 35.0 Surgical Procedure: Operation Date: 01/23/22 13:10 Proposed Procedure Side Surgeon p Scrotal I&D Abscess Noble Kwan MD Meds Allergies and Home Medications Allergies Allergy/AdvReac Type Severity Reaction Status Date / Time HAY FEVER Allergy Unknown Uncoded 01/23/22 09:09 Home Medication Medication Instructions Recorded diphenhydramine HCl 25 mg tablet 25 mg PO DAILY PRN 02/05/13 (Benadryl Allergy) multivitamin (Daily Multi-Vitamin) 1 ea PO DAILY 02/05/13 hydrochlorothiazide 25 mg tablet 25 mg PO DAILY #90 tab 04/27/21 loratadine 10 mg capsule (Claritin 10 mg PO PRN cap 09/05/21 Liqui-Gel) acetaminophen 500 mg tablet 1,000 mg PO Q6H PRN tab 12/05/21 (Tylenol Extra Strength) ibuprofen 200 mg tablet 600 mg PO Q6H PRN tab 12/05/21 tramadol 50 mg tablet 50 mg PO Q6H PRN #7 tab 01/02/22 L. acidophilus,casei,rhamnosus 50 1 cap PO DAILY #30 cap 01/10/22 billion cell capsule,delayed release (Bio-K plus) Current Visit Medications: Current Medications Generic Name Dose Route Start Last Admin Trade Name Freq PRN Reason Stop Dose Admin Acetaminophen 1,000 mg 01/23/22 10:00 01/23/22 11:10 Acetaminophen 500 Mg Tab PO 1,000 mg Q6H EUGENE Administration Sodium Chloride 500 mls @ 0 mls/hr 01/23/22 09:37 Saline 500ml Bag IV PRN PRN As Directed Sodium Chloride 1,000 mls @ 125 mls/hr 01/23/22 09:45 01/23/22 11:11 Saline 1000ml Bag IV 125 mls/hr INFUSION EUGENE Administration IV Miscellaneous Supplies 1 each 01/23/22 09:45 Iv Access IV DIRECTED EUGENE Lactobacillus Acidophilus/Casei 1 cap 01/24/22 08:30 L. Acidophilus, Casei, Rhamnosus Cap PO DAILY EUGENE Loratadine 10 mg 01/23/22 12:15 Loratidine 10 Mg Tab PO DAILY PRN PRN Morphine Sulfate 2 mg 01/23/22 09:37 Morphine 2 Mg/Ml Syr IVP Q1H PRN PRN Ondansetron HCl 4 mg 01/23/22 09:37 Ondansetron 4 Mg/2 Ml Vial IVP Q4H PRN PRN Sodium Chloride 0 ml 01/23/22 09:37 Normal Saline Flush 10 Ml Syr IVP PRN PRN Tramadol HCl 50 mg 01/23/22 09:37 Tramadol 50 Mg Tab PO Q6H PRN PRN Pain Zolpidem Tartrate 6.25 mg 01/23/22 09:37 Zolpidem 6.25 Mg Tabcr PO HS PRN PRN Sleep PFSH Active Problems Active Problems: Problem Status Onset Code Varicose veins of left lower extremity 02/29/16 I83.92 Umbilical hernia without obstruction and without gangrene 04/03/18 K42.9 Continuous chewing tobacco dependence F17.220 Obesity E66.9 Essential hypertension I10 Chest pain R07.9 Alcohol intake above recommended sensible limits Z72.89 Separation of right acromioclavicular joint, type 3 11/23/17 S43.101A Primary osteoarthritis, right shoulder M19.011 Biceps tendinitis of right shoulder M75.21 COVID U07.1 Postoperative seroma Status post right inguinal hernia repair Z98.890, Z87.19 S/P repair of hydrocele Z98.890, Z87.438 Postoperative infection T81.40XA Medical History Active Problem List Reducible right inguinal hernia (Acute) COVID (Acute) Biceps tendinitis of right shoulder (Chronic) Primary osteoarthritis, right shoulder (Chronic) Separation of right acromioclavicular joint, type 3 (Acute 11/23/17) Alcohol intake above recommended sensible limits (Acute) Chest pain (Acute) Essential hypertension (Acute) Inguinal hernia (Acute) Obesity (Acute) Continuous chewing tobacco dependence (Acute) Umbilical hernia without obstruction and without gangrene (Acute 04/03/18) Varicose veins of left lower extremity (Acute 02/29/16) Tobacco Smoking/Tobacco Use Status: Current-Occasional Tobacco Type: smokeless tobacco Smokeless tobacco user: chewing tobacco Second hand exposure: Yes Alcohol Alcohol Intake: current Alcohol intake frequency: a few times a week Substance Use Substance use: Never Substance use type: does not use Vital Signs and Lab Results Vital Signs Most Recent Vital Signs in EMR: Most Recent Vital Signs Temp Pulse Resp BP Pulse Ox 36.5 C 103 H 12 135/91 H 96 01/23/22 11:21 01/23/22 11:21 01/23/22 11:21 01/23/22 11:21 01/23/22 11:21 Lab Results Result Diagrams: 01/23/22 10:35 01/23/22 10:35 Blood Type / Crossmatch: No Data to Display Complete Blood Count: White Blood Count 20.15 10^3/uL (4.4-10.8) H 01/23/22 10:35 01/23/22 Red Blood Count 4.62 10^6/uL (4.36-5.78) 01/23/22 10:35 01/23/22 Hemoglobin 13.2 g/dL (13.5-17.5) L 01/23/22 10:35 01/23/22 Hematocrit 40.0 % (40.0-50.0) 01/23/22 10:35 01/23/22 Platelet Count 333 10^3/uL (130-400) 01/23/22 10:35 01/23/22 Complete Metabolic Panel: Sodium Level 133 mmol/L (136-145) L 01/23/22 10:35 01/23/22 Potassium Level 3.4 mmol/L (3.5-5.1) L 01/23/22 10:35 01/23/22 Chloride Level 96 mmol/L (98-107) L 01/23/22 10:35 01/23/22 Carbon Dioxide Level 26.6 mmol/L (21.0-32.0) 01/23/22 10:35 01/23/22 Blood Urea Nitrogen 16 mg/dL (7-18) 01/23/22 10:35 01/23/22 Creatinine 1.2 mg/dL (0.70-1.30) 01/23/22 10:35 01/23/22 Estimated GFR/1.73 m2 >= 60.00 (mL/min/1.73m2) 01/23/22 10:35 01/23/22 Calcium Level 9.0 mg/dL (8.5-10.1) 01/23/22 10:35 01/23/22 Albumin 3.5 g/dL (3.4-5.0) 01/23/22 10:35 01/23/22 Glucose Level 155 mg/dL (74-106) H 01/23/22 10:35 01/23/22 C-Reactive Protein 18.81 mg/dL (0.0-0.3) H 01/23/22 10:35 01/23/22 Liver Function Panel: Alanine Aminotransferase (ALT/SGPT) 27 U/L (16-63) 01/23/22 10:35 01/23/22 Aspartate Amino Transf (AST/SGOT) 12 U/L (15-37) L 01/23/22 10:35 01/23/22 Coagulation Panel: No Data to Display Cardiac Panel: No Data to Display Arterial Blood Gas: No Data to Display Venous Blood Gas: No Data to Display Pancreas Panel: No Data to Display Thyroid Panel: No Data to Display Infectious Disease: No Data to Display Blood Cultures: No Data to Display Toxicology Panel: No Data to Display Anesthesia Assessment and Plan Anesthesia History Personal History: No History of Anesthesia Complications Family History: No Family History of Anesthesia Complications Exercise Tolerance Exercise Tolerance: Metabolic Equivalents>4 Pertinent Negatives Pertinent Negatives: No Symptoms of GERD, No Major Cardiovascular Symptoms or Complaints and No Major Pulmonary Symptoms or Complaints Cardiac & Pulmonary Exam Cardiac Exam: Normal S1/S2 Heart Sounds Pulmonary Exam: Clear Bilateral Breath Sounds Implantable Cardiac Device Does patient have a Pacemaker or an ICD?: No Airway Exam Known Difficult Airway: No Mallampati Class: 2 Mouth Opening: Normal (> 3cm) Thyromental Distance: Greater than 3 cm Neck Range of Motion: Full ROM Neck Circumference: Thick Teeth Condition: Normal Dentition ASA Classification ASA Score: ASA 2 Emergency Case?: Yes NPO Status NPO Status: NPO Clear Liquids>2 hours and Full Stomach (Small granola bar at 10am) Anesthesia Plan Resuscitation Status: Full Code Anesthesia Technique: Spinal Anesthesia Airway Planned: Natural Airway Monitors Used: Standard Monitors Preoperative Comments:: Planned awake SAB with GETA RSI as backup.
--- NOTE | 2022-01-23 12:55 | W.UROLOGYCON ---
Date of service: 01/23/22 Time of Service: 12:55 Assessment and Plan Assessment and plan (1) Scrotal wall abscess: Status: Acute Assessment and plan: I believe he would benefit from an excisional debridement. We will be able to drain the fluid collection and obtain cultures directly from the wound. I would expect that we will leave the wound open and allow it to close gradually over a few weeks. History of Present Illness History of Present Illness Chief Complaint: Scrotal swelling Narrative: This is a 46-year-old gentleman who initially presented with a large right inguinal hernia that was associated with a hydrocele. He underwent a hernia repair and hydrocele repair in September 2021. He developed a seroma following the procedure. The seroma was aspirated but recurred. A Juan drain was then inserted and the seroma seemed to resolve. Unfortunately, he then developed redness, swelling and cellulitis. He improved with antibiotics, but once the antibiotics were completed, he again developed right scrotal swelling, redness and purulent drainage. He has had fevers and chills. He was admitted to the hospital for IV antibiotics and possible drainage procedures. Review of Systems Narrative: No vision change or dysphasia No diabetes or thyroid dysfunction No shortness of breath, cough or hemoptysis No chest pain or palpitations No nausea, vomiting, hepatitis, ulcers, jaundice No seizures, strokes or peripheral neuropathy No bleeding disorders or anemia No gout PFSH All Active Problems (Updated 01/23/22 @ 13:01 by Noble Kwan MD) Scrotal wall abscess (Acute) Varicose veins of left lower extremity (Acute 02/29/16) Umbilical hernia without obstruction and without gangrene (Acute 04/03/18) Continuous chewing tobacco dependence (Acute) CHEW Obesity (Acute) Essential hypertension (Acute) Chest pain (Acute) NEG STRESS TEST 2002 Alcohol intake above recommended sensible limits (Acute) H/O DWI Separation of right acromioclavicular joint, type 3 (Acute 11/23/17) Primary osteoarthritis, right shoulder (Chronic) Post Traumatic from AC separation 11/23/2017 Injected AC joint: 12/16/2018 Biceps tendinitis of right shoulder (Chronic) Intra-articular injection: 03/13/2019 COVID (Acute) 10/10 vaccinated Postoperative seroma (Acute) Status post right inguinal hernia repair (Acute) S/P repair of hydrocele (Acute) right Postoperative infection (Acute) Active Problem List Reducible right inguinal hernia (Acute) COVID (Acute) Biceps tendinitis of right shoulder (Chronic) Primary osteoarthritis, right shoulder (Chronic) Separation of right acromioclavicular joint, type 3 (Acute 11/23/17) Alcohol intake above recommended sensible limits (Acute) Chest pain (Acute) Essential hypertension (Acute) Inguinal hernia (Acute) Obesity (Acute) Continuous chewing tobacco dependence (Acute) Umbilical hernia without obstruction and without gangrene (Acute 04/03/18) Varicose veins of left lower extremity (Acute 02/29/16) Family History Father Heart disease Myocardial infarction Mother Essential hypertension Hyperlipidemia Sister No problems noted. Grandfather No problems noted. Grandfather Personal history of malignant neoplasm PROSTATE Grandmother Stroke Grandmother Stroke Social History Smoking/Tobacco Use Status: Current-Occasional Tobacco Type: smokeless tobacco Tobacco: How many years used: 30 Smokeless tobacco user: chewing tobacco Quit status: considering quitting Second Hand Exposure: Yes Smoking risk assessment performed?: Yes Alcohol Intake: current Alcohol Intake frequency: a few times a week Drug use: Never Substance use type: does not use Household members: spouse Housing: house Communication Needs: None Do you need help understanding health information?: Rarely Pets and animals: Yes Pets and animals: dog(s) Sexually active: Yes Do you think of yourself as: straight/heterosexual Current gender identity: male What is your relationship status?: How often do you talk on the phone with friends or family?: twice per week How often do you get together with friends or relatives?: once per week How often do you attend holiness or sikhism services?: decline to answer Do you belong to any clubs or organized social groups?: no Panel score (0-1 are the most socially isolated patients): 2 Veronika/Islam: Lutheran Special veronika needs: No Seatbelt use: always Helmet use: Yes Helmet use: always 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 He does not appear septic or toxic His vital signs are documented elsewhere There is no inguinal erythema or tenderness. The right hemiscrotum is diffusely enlarged and erythematous. I do not find any fluctuance on examination, but it is difficult to delineate any normal anatomy in the right hemiscrotum. The left testis is normal He is awake and alert I was present while his scrotal ultrasound was being done. The right testis appears normal, but there is a collection above the testis worrisome for an abscess. Results Last Vital Signs Temp 36.5 C 01/23/22 11:21 Pulse 103 H 01/23/22 11:21 Resp 12 01/23/22 11:21 BP 135/91 H 01/23/22 11:21 Pulse Ox 96 01/23/22 11:21 Labs Result diagrams: 01/23/22 10:35 01/23/22 10:35 Labs: Laboratory Results - last 24 hr 01/23/22 01/23/22 10:35 10:35 WBC 20.15 H RBC 4.62 Hgb 13.2 L Hct 40.0 MCV 86.6 MCH 28.6 MCHC 33.0 RDW 12.2 Plt Count 333 MPV 10.3 Immature Gran % 1.1 Neutrophils % 80.1 Lymphocytes % 10.7 Monocytes % 7.7 Eosinophils % 0.0 Basophils % 0.4 Nucleated RBC % 0 Absolute Neutrophils 16.14 H Absolute Lymphocytes 2.16 Absolute Monocytes 1.55 H Absolute Eosinophils 0.00 Absolute Basophils 0.08 RBC Morphology Normal Sodium 133 L Potassium 3.4 L Chloride 96 L Carbon Dioxide 26.6 Anion Gap 10.4 BUN 16 Creatinine 1.2 Estimated GFR/1.73 m2 >= 60.00 Glucose 155 H Calcium 9.0 Total Bilirubin 0.8 AST 12 L ALT 27 Alkaline Phosphatase 76 C-Reactive Protein 18.81 H Total Protein 8.8 H Albumin 3.5
[2022-01-23 12:56] VITALS: BMI 35.0
[2022-01-23 13:15] LABS: Source Nasal/Nares
[2022-01-23 14:17] LABS: COVID-19 PCR Negative (Negative)
--- NOTE | 2022-01-23 14:28 | W.PM.OP ---
Date of service: 01/23/22 Time of Service: 14:28 Operative Note Operative Note DATE OF PROCEDURE: 01/23/22 PRE-OP DIAGNOSIS: Right scrotal abcess POST-OP DIAGNOSIS: same PROCEDURE: Excisional debridement of right scrotal abcess SURGEON: Noble Kwan ANESTHESIA TYPE: Spinal Refer to Anesthesia Record ESTIMATED BLOOD LOSS: 25 PATHOLOGY: other (wound and tissue cultures) COMPLICATIONS: None Patient was transported to: PACU Implants: none Indications: This is a 46-year-old gentleman who has a history of a large right inguinal hernia. He underwent an inguinal herniorrhaphy and a hydrocele repair. He developed a seroma within the scrotum following the procedure. The seroma was aspirated but it recurred. A drain was then placed. The seroma seem to improve, but he then developed scrotal erythema and evidence of an infection. He improved with antibiotics but as soon as the antibiotics were completed, his swelling, erythema and fevers returned. Scrotal ultrasound demonstrates an abscess cavity. He presents now for excisional drainage of the abscess cavity. Findings: Abscess cavity surrounding testis. Right testis was enlarged but uninvolved with the abscess itself Procedure Description: The patient was brought to the operating room on 01/23/2022. After successful induction of spinal anesthesia, he was placed in the supine position. His scrotum was prepped and draped. An elliptical incision was made around his previous drain site the incision was extended down until an abscess cavity was entered. Foul-smelling purulent material was encountered. Cultures were taken and sent to the lab. The excised tissue was likewise sent to the lab for tissue culture. Using sharp and blunt dissection, the right testis was dissected free from the surrounding scrotal tissue. The testis was then delivered through the incision and inspected. The testis was enlarged, but no intratesticular abscess was identified. Any tissue that appeared avascular was debrided back until healthier appearing tissue was identified. The testis was then delivered back into the incision. The wound was irrigated with saline. A wet-to-dry dressing was then applied to the scrotum. An ABD pad was then placed followed by mesh undergarments. The patient tolerated this procedure well with no complications.
[2022-01-23 15:47] VITALS: BP 113/59; PULSE 88; RESP 14; TEMP 37.5; O2SAT 97
[2022-01-23] MEDS: Ketorolac 15 MG/ML VIAL IVP ×2 (15:48→21:19)
[2022-01-23] MEDS: Normal Saline Flush 10 ML SYR IVP (21:20)
[2022-01-23 23:33] VITALS: BP 129/78; PULSE 95; RESP 18; TEMP 37.8; O2SAT 97
[2022-01-24] VITALS (7 sets, daily range): BP systolic 118–144; BP diastolic 70–86; PULSE 79–93; RESP 12–25; TEMP 36.2–38.3; O2SAT 93–96; BMI 35.0
[2022-01-24] MEDS: VANCOMYCIN/WATER (PEG) 1.5 GM/300 ML BAG IVPB ×2 (01:05→10:27)
[2022-01-24] MEDS: Normal Saline 1,000 ML 125 ML IV (05:52)
[2022-01-24] MEDS: Acetaminophen 500 MG TAB 1000 MG PO ×4 (05:55→21:31)
--- NOTE | 2022-01-24 06:15 | ANES.PREOP_ITS ---
General Info Date of Service Date Performed: 01/24/22 Height: 6 ft 3 in Weight: 127.2 kg Body Mass Index (BMI): 35.0 Surgical Procedure: Operation Date: 01/23/22 13:10 Proposed Procedure Side Surgeon p Scrotal I&D Abscess Noble Kwan MD Actual Procedure Side Surgeon p Scrotal I&D Abscess Noble Kwan MD Pre-Op Diagnosis Post-Op Diagnosis SCROTAL INFECTION SCROTAL INFECTION Operation Date: 01/24/22 08:40 Proposed Procedure Side Surgeon p Dressing Change Nathaly Ortega, Meds Allergies and Home Medications Allergies Allergy/AdvReac Type Severity Reaction Status Date / Time HAY FEVER Allergy Unknown Uncoded 01/23/22 09:09 Home Medication Medication Instructions Recorded diphenhydramine HCl 25 mg tablet 25 mg PO DAILY PRN 02/05/13 (Benadryl Allergy) multivitamin (Daily Multi-Vitamin) 1 ea PO DAILY 02/05/13 hydrochlorothiazide 25 mg tablet 25 mg PO DAILY #90 tab 04/27/21 loratadine 10 mg capsule (Claritin 10 mg PO PRN cap 09/05/21 Liqui-Gel) acetaminophen 500 mg tablet 1,000 mg PO Q6H PRN tab 12/05/21 (Tylenol Extra Strength) ibuprofen 200 mg tablet 600 mg PO Q6H PRN tab 12/05/21 tramadol 50 mg tablet 50 mg PO Q6H PRN #7 tab 01/02/22 L. acidophilus,casei,rhamnosus 50 1 cap PO DAILY #30 cap 01/10/22 billion cell capsule,delayed release (Bio-K plus) Current Visit Medications: Current Medications Generic Name Dose Route Start Last Admin Trade Name Freq PRN Reason Stop Dose Admin Acetaminophen 1,000 mg 01/23/22 10:00 01/24/22 05:55 Acetaminophen 500 Mg Tab PO 1,000 mg Q6H EUGENE Administration Sodium Chloride 500 mls @ 0 mls/hr 01/23/22 09:37 Saline 500ml Bag IV PRN PRN As Directed Sodium Chloride 1,000 mls @ 125 mls/hr 01/23/22 09:45 01/24/22 05:52 Saline 1000ml Bag IV 125 mls/hr INFUSION EUGENE Administration Vancomycin/PEG/NADA/Lysine/Water 1.5 gm in 300 mls @ 200 mls/hr 01/24/22 00:00 01/24/22 02:49 Vancocin Injection IVPB Infused Q10H [facility] Infusion IV Miscellaneous Supplies 1 each 01/23/22 09:45 Iv Access IV DIRECTED [facility] Ketorolac Tromethamine 15 mg 01/23/22 14:00 01/24/22 02:48 Ketorolac 15 Mg/Ml Vial IVP 01/28/22 13:59 Not Given Q6H EUGENE Lactobacillus Acidophilus/Casei 1 cap 01/24/22 08:30 L. Acidophilus, Casei, Rhamnosus Cap PO DAILY EUGENE Loratadine 10 mg 01/23/22 12:15 Loratidine 10 Mg Tab PO DAILY PRN PRN Morphine Sulfate 2 mg 01/23/22 09:37 Morphine 2 Mg/Ml Syr IVP Q1H PRN PRN Ondansetron HCl 4 mg 01/23/22 09:37 Ondansetron 4 Mg/2 Ml Vial IVP Q4H PRN PRN Sodium Chloride 0 ml 01/23/22 09:37 01/23/22 21:20 Normal Saline Flush 10 Ml Syr IVP 10 ml PRN PRN Administration Zolpidem Tartrate 6.25 mg 01/23/22 09:37 Zolpidem 6.25 Mg Tabcr PO HS PRN PRN Sleep PFSH Active Problems Active Problems: Problem Status Onset Code Scrotal wall abscess N49.2 Varicose veins of left lower extremity 02/29/16 I83.92 Umbilical hernia without obstruction and without gangrene 04/03/18 K42.9 Continuous chewing tobacco dependence F17.220 Obesity E66.9 Essential hypertension I10 Chest pain R07.9 Alcohol intake above recommended sensible limits Z72.89 Separation of right acromioclavicular joint, type 3 11/23/17 S43.101A Primary osteoarthritis, right shoulder M19.011 Biceps tendinitis of right shoulder M75.21 COVID U07.1 Postoperative seroma Status post right inguinal hernia repair Z98.890, Z87.19 S/P repair of hydrocele Z98.890, Z87.438 Postoperative infection T81.40XA Medical History Active Problem List Reducible right inguinal hernia (Acute) COVID (Acute) Biceps tendinitis of right shoulder (Chronic) Primary osteoarthritis, right shoulder (Chronic) Separation of right acromioclavicular joint, type 3 (Acute 11/23/17) Alcohol intake above recommended sensible limits (Acute) Chest pain (Acute) Essential hypertension (Acute) Inguinal hernia (Acute) Obesity (Acute) Continuous chewing tobacco dependence (Acute) Umbilical hernia without obstruction and without gangrene (Acute 04/03/18) Varicose veins of left lower extremity (Acute 02/29/16) Tobacco Smoking/Tobacco Use Status: Current-Occasional Tobacco Type: smokeless tobacco Smokeless tobacco user: chewing tobacco Second hand exposure: Yes Alcohol Alcohol Intake: current Alcohol intake frequency: a few times a week Substance Use Substance use: Never Substance use type: does not use Vital Signs and Lab Results Vital Signs Most Recent Vital Signs in EMR: Most Recent Vital Signs Temp Pulse Resp BP Pulse Ox 37.8 C H 95 H 18 129/78 97 01/23/22 23:33 01/23/22 23:33 01/23/22 23:33 01/23/22 23:33 01/23/22 23:33 Lab Results Result Diagrams: 01/23/22 10:35 01/23/22 10:35 Blood Type / Crossmatch: No Data to Display Complete Blood Count: White Blood Count 20.15 10^3/uL (4.4-10.8) H 01/23/22 10:35 01/23/22 Red Blood Count 4.62 10^6/uL (4.36-5.78) 01/23/22 10:35 01/23/22 Hemoglobin 13.2 g/dL (13.5-17.5) L 01/23/22 10:35 01/23/22 Hematocrit 40.0 % (40.0-50.0) 01/23/22 10:35 01/23/22 Platelet Count 333 10^3/uL (130-400) 01/23/22 10:35 01/23/22 Complete Metabolic Panel: Sodium Level 133 mmol/L (136-145) L 01/23/22 10:35 01/23/22 Potassium Level 3.4 mmol/L (3.5-5.1) L 01/23/22 10:35 01/23/22 Chloride Level 96 mmol/L (98-107) L 01/23/22 10:35 01/23/22 Carbon Dioxide Level 26.6 mmol/L (21.0-32.0) 01/23/22 10:35 01/23/22 Blood Urea Nitrogen 16 mg/dL (7-18) 01/23/22 10:35 01/23/22 Creatinine 1.2 mg/dL (0.70-1.30) 01/23/22 10:35 01/23/22 Estimated GFR/1.73 m2 >= 60.00 (mL/min/1.73m2) 01/23/22 10:35 01/23/22 Calcium Level 9.0 mg/dL (8.5-10.1) 01/23/22 10:35 01/23/22 Albumin 3.5 g/dL (3.4-5.0) 01/23/22 10:35 01/23/22 Glucose Level 155 mg/dL (74-106) H 01/23/22 10:35 01/23/22 C-Reactive Protein 18.81 mg/dL (0.0-0.3) H 01/23/22 10:35 01/23/22 Liver Function Panel: Alanine Aminotransferase (ALT/SGPT) 27 U/L (16-63) 01/23/22 10:35 01/23/22 Aspartate Amino Transf (AST/SGOT) 12 U/L (15-37) L 01/23/22 10:35 01/23/22 Coagulation Panel: No Data to Display Cardiac Panel: No Data to Display Arterial Blood Gas: No Data to Display Venous Blood Gas: No Data to Display Pancreas Panel: No Data to Display Thyroid Panel: No Data to Display Infectious Disease: Coronavirus (COVID-19)(PCR) Negative (Negative) 01/23/22 13:15 01/23/22 Coronavirus 2019 Source Nasal/Nares 01/23/22 13:15 01/23/22 Blood Cultures: No Data to Display Toxicology Panel: No Data to Display Anesthesia Assessment and Plan Anesthesia History Personal History: No History of Anesthesia Complications Family History: No Family History of Anesthesia Complications Exercise Tolerance Exercise Tolerance: Metabolic Equivalents>4 Cardiac & Pulmonary Exam Cardiac Exam: Normal S1/S2 Heart Sounds Pulmonary Exam: Clear Bilateral Breath Sounds Implantable Cardiac Device Does patient have a Pacemaker or an ICD?: No Airway Exam Known Difficult Airway: No Mallampati Class: 2 Mouth Opening: Normal (> 3cm) Thyromental Distance: Greater than 3 cm Neck Range of Motion: Full ROM Neck Circumference: Thick Teeth Condition: Normal Dentition ASA Classification ASA Score: ASA 2 Emergency Case?: No NPO Status NPO Status: NPO Clears >2 hours, Solids >8 hours Anesthesia Plan Resuscitation Status: Full Code Anesthesia Technique: General Anesthesia Airway Planned: Natural Airway Monitors Used: Standard Monitors Preoperative Comments:: 46 yo male for dressing change. Sig PMHx: HTN, chewing tobacco, EtOH. Previous Anes: mac 4 2a, easy mask. spinal for washout yesterday, 2 attempts 1st with 25 ga with no csf, 2nd with 22 quincke. plan for MAC vs GA.
--- NOTE | 2022-01-24 07:09 | W.PM.PROGNOT ---
Date of Service Date of service: 01/24/22 Time of Service: 07:09 Assessment and Plan Assessment and plan (1) Scrotal wall abscess: Status: Acute Assessment and plan: He looks better clinically. His cultures are all pending (Gram positive cocci on gram stain). His first dressing change will occur in the OR today. I would expect that a smaller amount of dressing material can be reapplied so that dressing changes can occur at the bedside/home afterwards. Subjective Subjective Interval history since last seen: Slight chill with low grade fever overnight. Pain has decreased. Exam Narrative Exam Narrative: Does not appear septic Vital signs documented elsewhere No erythema extending up to groin. Right hemiscrotum firm but nontender Objective Last Vital Signs Temp 37.8 C H 01/23/22 23:33 Pulse 95 H 01/23/22 23:33 Resp 18 01/23/22 23:33 BP 129/78 01/23/22 23:33 Pulse Ox 97 01/23/22 23:33 Laboratory Results - last 24 hr 01/23/22 01/23/22 01/23/22 10:35 10:35 13:15 WBC 20.15 H RBC 4.62 Hgb 13.2 L Hct 40.0 MCV 86.6 MCH 28.6 MCHC 33.0 RDW 12.2 Plt Count 333 MPV 10.3 Immature Gran % 1.1 Neutrophils % 80.1 Lymphocytes % 10.7 Monocytes % 7.7 Eosinophils % 0.0 Basophils % 0.4 Nucleated RBC % 0 Absolute Neutrophils 16.14 H Absolute Lymphocytes 2.16 Absolute Monocytes 1.55 H Absolute Eosinophils 0.00 Absolute Basophils 0.08 RBC Morphology Normal Sodium 133 L Potassium 3.4 L Chloride 96 L Carbon Dioxide 26.6 Anion Gap 10.4 BUN 16 Creatinine 1.2 Estimated GFR/1.73 m2 >= 60.00 Glucose 155 H Calcium 9.0 Total Bilirubin 0.8 AST 12 L ALT 27 Alkaline Phosphatase 76 C-Reactive Protein 18.81 H Total Protein 8.8 H Albumin 3.5 Gram Stain COVID-19 Source Nasal/Nares SARS-CoV-2 (PCR) Negative Aerobic Culture Ref Lab Test Source Ref Test Comments 01/23/22 14:10 WBC RBC Hgb Hct MCV MCH MCHC RDW Plt Count MPV Immature Gran % Neutrophils % Lymphocytes % Monocytes % Eosinophils % Basophils % Nucleated RBC % Absolute Neutrophils Absolute Lymphocytes Absolute Monocytes Absolute Eosinophils Absolute Basophils RBC Morphology Sodium Potassium Chloride Carbon Dioxide Anion Gap BUN Creatinine Estimated GFR/1.73 m2 Glucose Calcium Total Bilirubin AST ALT Alkaline Phosphatase C-Reactive Protein Total Protein Albumin Gram Stain Cancelled COVID-19 Source SARS-CoV-2 (PCR) Aerobic Culture Cancelled Ref Lab Test Source Cancelled Ref Test Comments Cancelled
--- NOTE | 2022-01-24 07:36 | W.ANESPOSTOP ---
Postoperative Evaluation Date, Time and Location Date Performed: 01/23/22 Time Performed: 14:40 Patient Location: Med/Surg Vital Signs Most Recent Imported Vital Signs: Most Recent Vital Signs Temp Pulse Resp BP Pulse Ox 37.8 C H 95 H 18 129/78 97 01/23/22 23:33 01/23/22 23:33 01/23/22 23:33 01/23/22 23:33 01/23/22 23:33 Pain Score Most Recent Pain Score: Most Recent Pain Score Pain Level 0 01/23/22 23:33 Assessment Mental Status: Awake (Alert & Oriented to Patient Baseline) Airway and Respiratory Function: Patent airway with normal (patient baseline) respiratory exam Cardiovascular Function: Hemodynamically Stable Hydration Status: Adequately Hydrated Nausea & Vomiting: No Nausea or Vomiting Pain: Pt. Denies Any Pain Peripheral Nerve Block: Regional nerve block not resolved at time of post operative discharge
[2022-01-24] MEDS: Ketorolac 15 MG/ML VIAL IVP ×3 (07:44→21:31)
--- NOTE | 2022-01-24 08:26 | PGE_ITS ---
Date of Service Date of service: 01/24/22 Time of Service: 08:27 Assessment and Plan Assessment and plan (1) Scrotal wall abscess: Status: Acute Assessment and plan: -Dressing change under anesthesia today. We will place wound consult in the nurses can do dressing change daily. Wet-to-dry versus alginate packing Ambulate Continue I-S Cultures still pending and will adjust antibiotics accordingly Probable DC on Subjective Subjective Interval history since last seen: Pt is doing well. no headaches. No CP or SOB. no productive cough. no dysuria. no leg pain or swelling. Pain is reasonably controlled. He has some mild burning. We are planning on doing dressing change under anesthesia today. Risks include but not limited to bleeding infection scarring damage or loss of testicle and complications from anesthesia. He tolerated anesthesia well yester day without any problems. He has had no problems urinating. He has not moved his bowels since he has been here. Exam Narrative Exam Narrative: PHYSICAL EXAM GENERAL APPEARANCE: Alert, healthy appearance, oriented, in no acute distress SKIN: No rashes.? No breakdown HYDRATION: Well hydrated HEAD, EYES, EARS, NECK, THROAT: Head is normocephalic, pupils equal, round, reactive to light and accommodation, ocular movement intact, sclera clear and no jaundice. ?Dentition intact. No sore throat.? No jaw pain. No thrush NECK: Supple, Trachea midline. No JVD. LUNGS: normal respiration/nl chest excursion. ?Clear to auscultation B/l no R/R/W ?HEART: Regular rate and rhythm, EXTREMITY: No edema or cyanosis? no leg pain, redness, swelling. ? No IV infiltration. Lg varicose veins in the left lower extremity ABDOMEN: non tender to palpation, Normal bowel sounds Wound is dressed NEURO: no focal neuro deficits. ? Objective Last Vital Signs Temp 37.8 C H 01/23/22 23:33 Pulse 95 H 01/23/22 23:33 Resp 18 01/23/22 23:33 BP 129/78 01/23/22 23:33 Pulse Ox 97 01/23/22 23:33 Laboratory Results - last 24 hr 01/23/22 01/23/22 01/23/22 10:35 10:35 13:15 WBC 20.15 H RBC 4.62 Hgb 13.2 L Hct 40.0 MCV 86.6 MCH 28.6 MCHC 33.0 RDW 12.2 Plt Count 333 MPV 10.3 Immature Gran % 1.1 Neutrophils % 80.1 Lymphocytes % 10.7 Monocytes % 7.7 Eosinophils % 0.0 Basophils % 0.4 Nucleated RBC % 0 Absolute Neutrophils 16.14 H Absolute Lymphocytes 2.16 Absolute Monocytes 1.55 H Absolute Eosinophils 0.00 Absolute Basophils 0.08 RBC Morphology Normal Sodium 133 L Potassium 3.4 L Chloride 96 L Carbon Dioxide 26.6 Anion Gap 10.4 BUN 16 Creatinine 1.2 Estimated GFR/1.73 m2 >= 60.00 Glucose 155 H Calcium 9.0 Total Bilirubin 0.8 AST 12 L ALT 27 Alkaline Phosphatase 76 C-Reactive Protein 18.81 H Total Protein 8.8 H Albumin 3.5 Gram Stain COVID-19 Source Nasal/Nares SARS-CoV-2 (PCR) Negative Aerobic Culture Ref Lab Test Source Ref Test Comments 01/23/22 14:10 WBC RBC Hgb Hct MCV MCH MCHC RDW Plt Count MPV Immature Gran % Neutrophils % Lymphocytes % Monocytes % Eosinophils % Basophils % Nucleated RBC % Absolute Neutrophils Absolute Lymphocytes Absolute Monocytes Absolute Eosinophils Absolute Basophils RBC Morphology Sodium Potassium Chloride Carbon Dioxide Anion Gap BUN Creatinine Estimated GFR/1.73 m2 Glucose Calcium Total Bilirubin AST ALT Alkaline Phosphatase C-Reactive Protein Total Protein Albumin Gram Stain Cancelled COVID-19 Source SARS-CoV-2 (PCR) Aerobic Culture Cancelled Ref Lab Test Source Cancelled Ref Test Comments Cancelled
[2022-01-24] MEDS: Lactated Ringers 1,000 ML 30 ML IV (08:31)
--- NOTE | 2022-01-24 09:01 | ROE_ITS ---
Date of service: 01/24/22 Time of Service: 09:01 Operative Note Operative Note DATE OF PROCEDURE: 01/23/22 PRE-OP DIAGNOSIS: scrotal abscess POST-OP DIAGNOSIS: same PROCEDURE: DCUA SURGEON: Nathaly Ortega NETWORK OPERATIONS LEAD: Valeria Stevens ANESTHESIA TYPE: General:No Airway Refer to Anesthesia Record ESTIMATED BLOOD LOSS: 0 PATHOLOGY: other (wound and tissue cultures) COMPLICATIONS: None Patient was transported to: PACU Patient's condition: stable Procedure Description: Patient is here today for dressing change under anesthesia. Informed consent is obtained explaining risks and benefits of the procedure including but not limited to: Bleeding, damage or loss of testicle, scarring and disfigurement, and anesthesia. Patient is brought to the operating room suite and placed in the supine position with all bony surfaces padded. Anesthesia is administered per the department of anesthesia. Timeout is performed. The old packing is removed. The wound is interrogated. The cavity is irregular in shape and is probably [id number]. it is irrigated. There is does not appear to be any necrotic tissue. There is no granulation tissue started. There are no further abscess pockets. It is repacked with wet Kerlix. Sterile dressings are applied. Patient tolerated procedure well without complication and transferred to recovery room in stable condition.
--- NOTE | 2022-01-24 09:08 | W.ANESPOSTOP ---
Postoperative Evaluation Date, Time and Location Date Performed: 01/24/22 Time Performed: 09:08 Patient Location: PACU Vital Signs Most Recent Imported Vital Signs: Most Recent Vital Signs Temp Pulse Resp BP Pulse Ox 36.4 C L 79 24 119/76 94 01/24/22 08:58 01/24/22 08:58 01/24/22 08:58 01/24/22 08:58 01/24/22 08:58 Most Recent Vital Signs Temp Pulse Resp BP Pulse Ox 37.8 C H 95 H 18 129/78 97 01/23/22 23:33 01/23/22 23:33 01/23/22 23:33 01/23/22 23:33 01/23/22 23:33 Pain Score Most Recent Pain Score: Most Recent Pain Score Pain Level 0 01/24/22 08:58 Assessment Mental Status: Awake (Alert & Oriented to Patient Baseline) Airway and Respiratory Function: Patent airway with normal (patient baseline) respiratory exam Cardiovascular Function: Hemodynamically Stable Hydration Status: Adequately Hydrated Nausea & Vomiting: No Nausea or Vomiting Pain: Pain is tolerable per patient Peripheral Nerve Block: Patient did not receive a nerve block
--- NOTE | 2022-01-24 10:06 | INITIAL_ITS ---
- If Service Date Differs Date of service: 01/24/22 Time of Service: 10:06 Care Management Initial Assess REASON FOR HOSPITALIZATION:: Postoperative infection of scrotum PAST MEDICAL HISTORY/PAST SURGICAL HISTORY:: All Active Problems (Updated 01/10/22 @ 13:34 by Nathaly Ortega DO). Varicose veins of left lower extremity (Acute 02/29/16). Umbilical hernia without obstruction and without gangrene (Acute 04/03/18). Continuous chewing tobacco dependence (Acute). CHEW. Obesity (Acute). Essential hypertension (Acute). Chest pain (Acute). NEG STRESS TEST 2002. Alcohol intake above recommended sensible limits (Acute). H/O DWI. Separation of right acromioclavicular joint, type 3 (Acute 11/23/17). Primary osteoarthritis, right shoulder (Chronic). Post Traumatic from AC separation 11/23/2017. Injected AC joint: 12/16/2018. Biceps tendinitis of right shoulder (Chronic). Intra-articular injection: 03/13/2019. COVID (Acute). 10/10. vaccinated. Postoperative seroma (Acute). Status post right inguinal hernia repair (Acute). S/P repair of hydrocele (Acute). right. Postoperative infection (Acute). Active Problem List . Reducible right inguinal hernia (Acute). COVID (Acute). Biceps tendinitis of right shoulder (Chronic). Primary osteoarthritis, right shoulder (Chronic). Separation of right acromioclavicular joint, type 3 (Acute 11/23/17). Alcohol intake above recommended sensible limits (Acute). Chest pain (Acute). Essential hypertension (Acute). Inguinal hernia (Acute). Obesity (Acute). Continuous chewing tobacco dependence (Acute). Umbilical hernia without obstruction and without gangrene (Acute 04/03/18). Varicose veins of left lower extremity (Acute 02/29/16) PREVIOUS FUNCTIONAL STATUS/SOCIAL/FAMILY SUPPORTS:: Greg lives with his Mariel in [place], [place] They have one child, a son, who is 22 years old and lives independently. 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 His works for the [employer] in [place]. Greg is independent at baseline and receives no commmunity services. CURRENT FUNCTIONAL STATUS:: Greg was sitting up in bed when CM met with him. He was pleasant and agreeable to conversation. Greg informed CM that he has been dealing with his current health issue since September. He initially had an inguinal hernia and hydrocele repair and then developed a seroma. This has been drained several times over the last few months and he had a drain placed in December. Yesterday he had a scrotal ultrasound which identified an abscess . This was surgically drained . Greg shared that he has pain in the area but it is not constant. ADVANCE DIRECTIVES:: none on file Has patient been provided with info about the portal/API?: Yes Did the patient sign up for the portal?: Yes (previously) CODE STATUS:: Full Code INSURANCE COVERAGE / FINANCIAL ISSUES:: BC BS CURRENT HOME/COMMUNITY SERVICES/EQUIPMENT:: none PRIMARY CARE PHYSICIAN:: Alexis Rust POTENTIAL DISCHARGE NEEDS:: follow up with PCP, surgeon and plan of care PATIENT/FAMILY EDUCATION NEEDS:: Review of discharge instructions, wound care, activity, limitations, medication, follow up plan and discuss Ask Me Three TRANSPORTATION:: via private vehicle with family PLAN:: Greg will likely be discharged home with no new services. He will follow up with his community providers and plan of care and transport with family via private vehicle. CM will continue to support Greg and his dischar ge needs.
[2022-01-24] MEDS: Normal Saline 500 ML 30 ML IV (10:27)
[2022-01-24] MEDS: Normal Saline Flush 10 ML SYR IVP ×4 (10:29→21:32)
[2022-01-24] MEDS: Polyethylene Glycol 3350 17 GM PACKET PO (15:00)
[2022-01-24] MEDS: cefTRIAXone 2 GM/50 ML BAG IVPB (16:41)
[2022-01-24] MEDS: Enoxaparin 40 MG/0.4 ML SYR SC (21:31)
[2022-01-24] MEDS: Gabapentin 100 MG CAP PO (21:32)
[2022-01-25] MEDS: Acetaminophen 500 MG TAB 1000 MG PO ×4 (03:35→21:38)
[2022-01-25] MEDS: Ketorolac 15 MG/ML VIAL IVP ×4 (03:35→21:39)
[2022-01-25] MEDS: Normal Saline Flush 10 ML SYR IVP ×6 (03:35→21:38)
[2022-01-25 07:14] LABS: Absolute Basophil Count 0.08 10^3/uL (0.0-0.2); Absolute Monocyte Count 1.12 10^3/uL (0.1-0.8); Absolute Neutrophil Count 9.86 10^3/uL (1.2-6.7); Basophils % 0.6; Eosinophils % 1.2; HCT 37.4 % (40.0-50.0); HGB 12.2 g/dL (13.5-17.5); Immature Grans % 1.5; Lymphocytes % 12.3; MCH 28.6 pg (27.0-33.0); MCHC 32.6 % (32.0-36.0); MCV 87.6 fL (80-95); MPV 10.6 fL (8.0-11.0); Monocytes % 8.6; Neutrophils % 75.8; Nucleated RBC 0 %; Platelet Count 329 10^3/uL (130-400); RBC 4.27 10^6/uL (4.36-5.78); RDW 12.3 % (11.8-14.1); RDW-SD 39.5 fL; WBC 13.01 10^3/uL (4.4-10.8)
[2022-01-25 07:16] LABS: Absolute Eosinophil Count 0.16 10^3/uL (0.0-0.7)
[2022-01-25 07:30] VITALS: BP 122/85; PULSE 85; RESP 12; TEMP 36.3; O2SAT 95
[2022-01-25] MEDS: Enoxaparin 40 MG/0.4 ML SYR SC (07:34)
[2022-01-25 07:40] LABS: C-Reactive Protein 24.34 mg/dL (0.0-0.3)
--- NOTE | 2022-01-25 10:01 | PDOC.CMPRO ---
- If Service Date Differs Date of service: 01/25/22 Time of Service: 10:01 Care Management Progress Note S/O:Greg was siting up in bed when CM met with him. He had been pre-medicated for a dressing change which he anticipated would be uncomfortable. Greg asked CM if it would be possible to come back to the hospital daily for dressing changes rather than have home health nursing do them. He stated that he has 2 dogs that do not do well with company and it would be difficult to contain them. CM inquired if this could be done in the [facility], but because of the amount of time the dressing changes take and the fact that the wound is infected, it will not be an option. CM suggested that he go to a relative's house if possible and meet HH there. He stated that he would consider this option. Another option would be SB-[facility] but Greg does not want to remain hospitalized. As it is possible that Greg will be discharged tomorrow, CM will revisit the options with him in the morning. A: Greg is a 46 year old man admitted on 01/23/22 with a scrotal abscess P:Greg will likely be discharged home with no new services. He will follow up with his community providers and plan of care and transport with family via private vehicle. CM will continue to support Greg and his discharge needs.
[2022-01-25] MEDS: diazePAM 5 MG TAB PO (11:11)
[2022-01-25] MEDS: oxyCODONE 5 MG TAB PO (11:11)
[2022-01-25] MEDS: MORPHine 2 MG/ML SYR IVP (11:15)
--- NOTE | 2022-01-25 14:13 | WOUNDCONS ---
- If Service Date Differs Date of service: 01/25/22 Time of Service: 11:30 Wound Initial Evaluation Narrative: Per H&P: The patient intially underwent an open right inguinal hernia repair that contained bowel and removal of hydrocele on 09/27/21. on 10/28/21 an Ultrasound was performed of the right testicle for further evaluation of significant post-op swelling. US showed large right septated hydrocle. on 11/01 he under went need aspiration and drainage of the hydrocele of his right testicle. On 12/[address] scan for further evaluation of recurrence and continued hydrocele. This showed Fluid in the right scrotal sac, partially included on the exam.? Prior right inguinal hernia repair.? Fatty containing left inguinal hernia.? No acute abnormality is seen intra-abdominally. Urology was consulted and Dr. Ortega placed a karla drain on 01/02/22 which was then removed 01/09 to allow evacuation of the fluid and to allow for the soft tissue to scar down and to prevent recurrence. This was complicated by infection and the patient was started on Augmentin and was followed closely as an out patient by Dr. Ortega. Today he states that he completed a course of antibiotics on 01/17 and progressively starting feeling worse. He noted thick, brown/yellow drainage which was foul smelling. This has since stopped. He states that his testicle is painful at times and this is often a sharp pain. Pt was taken to the operating room on 01/23/22 for incision and drainage of scrotal abscess and drained for foul odored drainage. On 01/24/22 pt returned to the OR for repeat dressing change under anesthesia. Wbc initially 20.15, today 13.01 Neutrophils 80.1, 75.8 lymphs 2.16, 1.6 mono 1.55, 1.12 crp 18.81 24.34 Wound culture: Gram positive radha, gram negative rods Blood culture no growth for [address] Ortega requested a wound consult to begin today regarding the surgical scrotal wound on right side of the scrotum. Introduced myself to patient and family yesterday. Obtained consent this am from patient to obtain photos. Discussed the plan. Pt in agreement to plan. Pt was premedicated for procedure. Old dressing removed with soaking with NS. Removed one ABD and one long piece of continuous guaze from wound that was tightly caught between the testes. Irrigated frequently and very gently moved side to side with gentle pressure until removed. Removal procedure took approximately 45 minutes. - Wound scrotum Wound Type: Incision, Full Thickness Wound General Appearance: Draining, Unapproximated, Muscle Visible, Tunneling Wound Bed Greatest Portion: Red (Granulation) Wound Bed Lesser Portion: Yellow (Slough) Wound Surrounding Tissue Appearance: Bright Red, Shiny, Edematous, Tunnelling, Other (pink healthy nongranular tissue) Percent of Wound Bed Granulated/Red: 60 Percent of Wound Bed Slough/Yellow: 5 Percent of Wound Bed Eschar/Black: 0 Wound Length: 2.3 in (1st photo taken and measured in neutral position) Wound Width: 5.3 in Wound Depth: 4 in (tunnelling up to 5.5 cm at the 1' oclock position) Wound Drainage Amount: Moderate Wound Drainage Odor: Foul Odor Wound Drainage Description: Purulent, Sero Sanguineous Wound Topical Solution/Irrigant: Saline Irrigant Wound Debridement Method: Hydrotherapy (irrigated with 375 ml NS and allowed to dwell to aid in loosening old dressing. Excess patted dry. ) Wound Debridement Result: Healthy Tissue Revealed, Yellow Sloughing Remains (Irrigated with 375 ml NS with catheter tip 60 ml syringe and allowed dressing to soak off. Excess pat dry.) Wound Debridement Amount of Tissue Removed: None Additional Other Comments: Scrotal surgical wound. - Circulation, Sensation, Motion Edema Degree: Other (nonpitting) Skin Temperature: Hot Skin Color: Erythema Additional Other Comments: scrotum - Pain Pain Level: 2 (pt premedicated prior to dressing change) Pain Description: Tightness, Sharp, Stabbing Pain Duration/Frequency: Intermittent, With Palpation Wound was irrigated with NS. Pat dry. Area loosely packed with Algidex Ag 1/4 inch packing strip approximately one half bottle. Covered with an ABD pad. Mesh brief to keep dressings in place. - Photo Photo: - Treatment/Dressing Change Topicals/Ointments: None Cleanse With: Saline Dressing Types: ABD Pad Dressing Comment: Algidex Ag Additional Other Comments: Mesh brief - Recomendation Recomendation:: 1. Remove ABD dressing and packing. May need to use Normal Saline to soak to loosen. 2. Irrigate wound with normal saline. 3. Pat dry. 4. Loosely pack wound with Algidex Ag packing strip to all areas of wound in one continuous strip. Leave a 2 inch tail outside the wound. 5. Cover with an ABD pad. 6. Secure in place using a mesh brief. 7. Change packing and ABD daily and prn. May need to change ABD more frequently if displaced. Physcian/Nurse Practioner Notified: Yes Referrals: Dietary Treatment Time - Time Total Time Spent with Patient: 1.5 hr - Patient Will be Seen Weekly Treatment: daily - For: For:: 2 weeks
[2022-01-25 15:20] VITALS: BP 123/78; PULSE 84; RESP 17; TEMP 36.3; O2SAT 95
[2022-01-25] MEDS: cefTRIAXone 2 GM/50 ML BAG IVPB (16:00)
--- NOTE | 2022-01-25 16:12 | W.PM.PROGNOT ---
Date of Service Date of service: 01/25/22 Time of Service: 16:12 Assessment and Plan Assessment and plan (1) Scrotal wall abscess: Status: Acute Assessment and plan: Alginate dressing change daily. Ambulate Continue I-S Cultures still pending and will adjust antibiotics accordingly Subjective Subjective Interval history since last seen: Patient is doing well. No complaints. Pain is controlled Exam Resp Effort & Inspection: normal respiratory effort Cardio Rate: regular rate Rhythm: regular rhythm GI Inspection: normal to inspection Palpation: soft and nontender Other: Dressing changed by nursing staff earlier. Out dressing dry Objective Last Vital Signs Temp 97.3 F L 01/25/22 15:20 Pulse 84 01/25/22 15:20 Resp 17 01/25/22 15:20 BP 123/78 01/25/22 15:20 Pulse Ox 95 01/25/22 15:20 Laboratory Results - last 24 hr 01/25/22 01/25/22 06:28 06:28 WBC 13.01 H RBC 4.27 L Hgb 12.2 L Hct 37.4 L MCV 87.6 MCH 28.6 MCHC 32.6 RDW 12.3 Plt Count 329 MPV 10.6 Immature Gran % 1.5 Neutrophils % 75.8 Lymphocytes % 12.3 Monocytes % 8.6 Eosinophils % 1.2 Basophils % 0.6 Nucleated RBC % 0 Absolute Neutrophils 9.86 H Absolute Lymphocytes 1.60 Absolute Monocytes 1.12 H Absolute Eosinophils 0.16 Absolute Basophils 0.08 C-Reactive Protein 24.34 H
[2022-01-25] MEDS: Gabapentin 100 MG CAP PO (21:38)
[2022-01-25 23:55] VITALS: BP 123/81; PULSE 87; RESP 17; TEMP 36.6; O2SAT 94
[2022-01-26] MEDS: Normal Saline Flush 10 ML SYR IVP ×6 (03:08→20:19)
[2022-01-26] MEDS: Ketorolac 15 MG/ML VIAL IVP ×4 (03:08→20:19)
[2022-01-26] MEDS: Acetaminophen 500 MG TAB 1000 MG PO ×4 (03:09→21:30)
[2022-01-26 07:22] VITALS: BP 123/85; PULSE 75; RESP 17; TEMP 36.5; O2SAT 95
--- NOTE | 2022-01-26 08:36 | W.PM.PROGNOT ---
Date of Service Date of service: 01/26/22 Time of Service: 08:37 Assessment and Plan Assessment and plan (1) Scrotal wall abscess: Status: Acute Assessment and plan: Pain is well controlled. Alginate dressing change daily. Both patient and nsg felt pain was well managed during dressing change yesterday. Will Valium and Oxycodone Ambulate Continue I-S Cultures still pending and will adjust antibiotics accordingly Patient seen and examined and dressing changes done with nursing -Results of cultures are still pending We will add Flagyl because of the anaerobic gram-positive rods that are present Size:? Width ??2.3?cm Length?5.3cm Depth?5.5 ?Undermining/tunneling- the medial and superior tunnel have closed Wound Base: ?granular:20% ? Slough: 20% Surrounding Tissue: Pain:moderate Signs of infection: resolving Abx: rochein and flagyl Wound location: Right zayda-scrotum scrotal abscess) Vascular status:? N/A Protein status:? good Pressure offloading: N/A Smoker:? no Diabetes: no -Packing with silver impregnated gauze. Plan discharge tomorrow. He will need daily dressing changes with silver gauze. He will need home health Awaiting for KARYN on cultures Flagyl started because of anaerobic gram-positive rods Subjective Subjective Interval history since last seen: Patient reports his pain is well controlled. He is eager to return home. States he is ambulating and sitting in the chair frequently throughout the day. Exam Const General: cooperative, healthy appearing and comfortable Orientation: alert and oriented x3 Resp Effort & Inspection: normal respiratory effort, no audible wheezes and no cough Objective Last Vital Signs Temp 36.5 C 01/26/22 07:22 Pulse 75 01/26/22 07:22 Resp 17 01/26/22 07:22 BP 123/85 01/26/22 07:22 Pulse Ox 95 01/26/22 07:22
[2022-01-26] MEDS: Enoxaparin 40 MG/0.4 ML SYR SC (09:16)
[2022-01-26] MEDS: oxyCODONE 5 MG TAB PO (14:13)
[2022-01-26] MEDS: MORPHine 2 MG/ML SYR IVP (14:37)
--- NOTE | 2022-01-26 15:53 | PDOC.CMPRO ---
- If Service Date Differs Date of service: 01/26/22 Time of Service: 15:53 Care Management Progress Note S/O:Greg was siting up in bed when CM met with him. He had just had his dressing changed and was informed by Dr. Ortega that he would be discharged home tomorrow. Greg has made arrangements to receive his home health visits at his father's home. Address: [address] [place] [address] in [place], [place] This information was provided to [facility] fruit coordinator Vamshi Carrion by MARILYN. A: Greg is a 46 year old man admitted on 01/23/22 with a scrotal abscess P:Greg will be discharged home with new home health services for nursing for daily dressing changes. He will receive these services at his father's house in [facility] (see above). He will follow up with his community providers and plan of care and transport with family via private vehicle. CM will continue to support Greg and his discharge needs.
--- NOTE | 2022-01-26 16:07 | PDOC.HHF2F_ITS ---
Home Health Certification Home Health Certification: 1. Encounter Date and Reason I certify that Greg Esteves was seen by Nathaly Ortega on 01/27/22 and that I had a [id number] encounter with this patient that meets the physician face to face encounter requirements. 2. Clinical Findings Supporting Skilled Need and Homebound Status I certify that home health services are medically necessary, include either intermittent senior care and/or physical/speech therapy, and that this patient is homebound in that absences from the home require considerable and taxing effort and are infrequent or of short duration, or are attributable to the need to receive medical care. [X] (a) Attached documentation from encounter provides clinical findings supporting skilled need and homebound status (including what assistance patient requires to leave the home). The encounter with the patient was in whole, or in part, for the following medical condition, which is the primary reason for home health care: Infectoin Scrotum Correction: For daily dressing change -Remove old gauze -Irrigated with sterile saline -Lightly packed with silver impregnated gauze or alginate rope. If not available can use plain gauze -Cover with gauze and fluffs. These can be changed throughout the course of the day as they become wet/soiled Physical Therapy: Speech Therapy: Homebound: 3. Certification and Authentication I certify that I composed the above information based on my clinical judgement relating to this patient's medical condition and, if applicable, clinical findings communicated to me by the NPP or inpatient physician who performed the Home Health Referral. All further orders will be obtained through Dr. Ortega (Community Based Physician - PCP)
[2022-01-26] MEDS: cefTRIAXone 2 GM/50 ML BAG IVPB (16:09)
[2022-01-26 16:16] VITALS: BP 134/87; PULSE 77; RESP 17; TEMP 36.9; O2SAT 95
[2022-01-26] MEDS: Magnesium Citrate 300 ML BTL 150 ML PO (16:53)
[2022-01-26] MEDS: metroNIDAZOLE 500 MG/100 ML BAG 100 MG IVPB (16:54)
[2022-01-26] MEDS: Gabapentin 300 MG CAP PO (21:31)
[2022-01-26 22:30] VITALS: BP 143/84; PULSE 73; RESP 17; TEMP 36.1; O2SAT 96
[2022-01-27] MEDS: metroNIDAZOLE 500 MG/100 ML BAG 100 MG IVPB ×2 (00:56→08:41)
[2022-01-27] MEDS: Normal Saline Flush 10 ML SYR IVP ×4 (00:56→10:43)
[2022-01-27] MEDS: Ketorolac 15 MG/ML VIAL IVP ×2 (01:00→08:47)
[2022-01-27 07:55] VITALS: BP 150/90; PULSE 83; RESP 18; TEMP 36.4; O2SAT 94
[2022-01-27] MEDS: Enoxaparin 40 MG/0.4 ML SYR SC (08:39)
[2022-01-27] MEDS: oxyCODONE 5 MG TAB PO (10:04)
[2022-01-27] MEDS: Acetaminophen 500 MG TAB 1000 MG PO (10:04)
[2022-01-27] MEDS: MORPHine 2 MG/ML SYR IVP (10:44)
--- NOTE | 2022-01-27 11:07 | DSE_ITS ---
Date of service: 01/27/22 Time of Service: 11:07 DS: Diagnosis Discharge Diagnosis (1) Scrotal wall abscess: Status: Acute Discharge Plan Disposition Condition: Good Discharge Details Reason For Visit: Scrotal abscess Admit Date/Time: 01/23/22 09:37 Admit Provider: Nathaly Ortega Attending Provider: Nathaly Ortega Primary Care Provider: Alexis Rust Home Meds and New Rx's Prescriptions: New diazepam [Valium] 5 mg tablet 5 mg PO DAILY Qty: 20 0RF Rx Instructions: Take 1 hour prior to dressing change oxycodone 5 mg capsule 5 mg PO Q6H PRNQty: 20 0RF Rx Instructions: Take 1 pill 1 hour prior to dressing change and as needed for pain greater than a 7 amoxicillin-pot clavulanate 875-125 mg tablet 1 tab PO Q12H Qty: 10 0RF Rx Instructions: Take a probiotic daily while on antibiotics Bio-K plus 50 billion cell capsule,delayed release(DR/EC) 1 cap PO DAILY Qty: 30 0RF gabapentin 300 mg capsule 300 mg PO QHS Qty: 30 3RF Continued ibuprofen 200 mg tablet 600 mg PO Q6H PRN0RF acetaminophen [Tylenol Extra Strength] 500 mg tablet 1,000 mg PO Q6H PRN0RF tramadol 50 mg tablet 50 mg PO Q6H PRN (Reason: pain) Qty: 7 0RF Bio-K plus 50 billion cell capsule,delayed release(DR/EC) 1 cap PO DAILY Qty: 30 0RF Rx Instructions: finish all multivitamin [Daily Multi-Vitamin] 1 EACH tablet 1 ea PO DAILY 0RF diphenhydramine HCl [Benadryl Allergy] 25 MG tablet 25 mg PO DAILY PRN 0RF hydrochlorothiazide 25 mg tablet 25 mg PO DAILY Qty: 90 4RF loratadine [Claritin Liqui-Gel] 10 mg capsule 10 mg PO PRN 0RF Discharge Instructions Additional Instructions: MEDICATIONS: Alternate Tylenol 1000mg by mouth every 8 hours and Ibuprofen 600mg every 6 hours. ?Make sure you take ibuprofen with food and not on an empty stomach. ?Take the Tylenol and ibuprofen continuously for the first 72hrs- not just when you have pain.? Use the oxycodone for breakthrough pain.? Use ICE!?? Twenty minutes on, and then off, continuously for the first 72hours. If you are taking oxycondone pain medication, follow the instructions on the label and do not drive. Pain medications can make you very constipated. Make sure you are moving your bowels daily. If not, take a dose of Miralax. Antibiotics can cause diarrhea. Make sure you take a probiotic daily and for a full 30days once you completed the antibiotics. -You can shower. Get in the shower and wet down the wound and the packing, and than remove packing. Wash out the wound w/ water. Than the home RN can re- pack. Follow up in surgical clinic on Sunday as previously scheduled Keep an ice bag on the incision. 20 minutes on and 20 minutes off. Ice keeps the swelling down and swelling causes pain. Make sure you wrap the ice pack in a towel and don't apply directly to the skin. -No driving x1 week or of you are taking narcotic pain medication. -Follow-up with Dr. Ortega Sunday at 10am -Regular diet -no straining to move bowels -pain meds are very constipating: if you do not move your bowels daily take a dose of OTC milk of magnesia -It is ok to shower. No bathe, soaking, swimming or hot tubs -You may find that your appetite is smaller. Eat 3-6 small meals throughout the day. It is important to drink lots of water after surgery, 6-10 glasses a day. -If you were given an incentive spirometry (breathing visual coordinator?), continue to do this 10x/hour while awake. -We do want you up walking, at least 5-6 times per day. This is very important to prevent pneumonia and blood clots. You can climb stairs, take them slowly. -No lifting over 5 pounds. -You may find that you are very tired after surgery- this is normal. -please do not smoke for a minimum of 72 hours after surgery -Home RN will come daily to change packing and bring supplies. Stand Alone Forms: Nursing Discharge Form Activity:: see above Remove Dressings/Wound Care:: 24 hours Shower/Bathe:: 24 hours Activity:: see above Equipment/Supplies:: No Equipment Needed Diet:: As Tolerated DS: Summary Time Spent with Patient providing and/or coordinating discharge services: Less than 30 minutes Status at Discharge Functional status at discharge: independent ambulation Overall status at discharge: patient is progressing back to baseline Mental Status: mental status grossly normal Speech and Movement: speech and movement normal Mood: congruent mood Affect: normal affect Exam Psych Mental Status: mental status grossly normal Speech and Movement: speech and movement normal Mood: congruent mood Affect: normal affect DS: Data Vitals/I&O Vitals and I&O: Vital Signs Temperature 36.4 C L 01/27/22 07:55 Temperature Source Skin 01/27/22 07:55 Pulse 83 01/27/22 07:55 Pulse Rhythm Regular 01/27/22 02:21 Respiratory Rate 18 01/27/22 07:55 Respiratory Effort Non-Labored 01/27/22 02:21 Respiratory Depth Normal 01/27/22 02:21 Respiratory Pattern Normal 01/27/22 02:21 Blood Pressure 150/90 H 01/27/22 07:55 Pulse Oximetry 94 01/27/22 07:55 Oxygen Delivery Method Room Air 01/27/22 07:55 Oxygen Flow Rate 0 01/27/22 07:55 Pain Level 2 01/27/22 10:44 Intake & Output 01/26/22 01/26/22 01/27/22 11:59 23:59 11:59 Intake Total 730 / 1070 340 / 1070 100 / 100 Balance 730 / 1070 340 / 1070 100 / 100 Intake: IV 100 / 100 100 / 100 Oral 730 / 970 240 / 970 Other: Urine Color Yellow Urine Appearance Clear Comment pT stated that he voided about an hour ago. voiding independently Voiding Methods Toilet Toilet Data Completed and Pending Labs on day of discharge: Preliminary micro results at discharge 01/23/22 10:44 Wound Culture - Preliminary Scrotum Escherichia coli Normal Pat 01/23/22 14:10 Surgical Culture - Preliminary Scrotum Gram Positive Ángel Normal Pat 01/23/22 14:10 Surgical Culture - Preliminary Scrotum Normal Pat 01/23/22 14:10 Surgical Culture - Preliminary Scrotum Normal Pat 01/23/22 14:10 Surgical Culture - Preliminary Scrotum Escherichia coli Normal Pat 01/23/22 10:38 Blood Culture - Preliminary Blood NO GROWTH 72 HOURS 01/23/22 10:35 Blood Culture - Preliminary Blood NO GROWTH 72 HOURS 01/23/22 14:10 Anaerobic Culture - Preliminary Scrotum Anaerobic Gram Positive Ángel 01/23/22 14:10 Anaerobic Culture - Preliminary Scrotum 01/23/22 14:10 Anaerobic Culture - Preliminary Scrotum Anaerobic Gram Negative Ángel 01/23/22 14:10 Anaerobic Culture - Preliminary Scrotum Anaerobic Gram Negative Ángel PFSH All Active Problems (Updated 01/23/22 @ 13:01 by Noble Kwan MD) Scrotal wall abscess (Acute) Varicose veins of left lower extremity (Acute 02/29/16) Umbilical hernia without obstruction and without gangrene (Acute 04/03/18) Continuous chewing tobacco dependence (Acute) CHEW Obesity (Acute) Essential hypertension (Acute) Chest pain (Acute) NEG STRESS TEST 2002 Alcohol intake above recommended sensible limits (Acute) H/O DWI Separation of right acromioclavicular joint, type 3 (Acute 11/23/17) Primary osteoarthritis, right shoulder (Chronic) Post Traumatic from AC separation 11/23/2017 Injected AC joint: 12/16/2018 Biceps tendinitis of right shoulder (Chronic) Intra-articular injection: 03/13/2019 COVID (Acute) 10/10 vaccinated Postoperative seroma (Acute) Status post right inguinal hernia repair (Acute) S/P repair of hydrocele (Acute) right Postoperative infection (Acute) Active Problem List Reducible right inguinal hernia (Acute) COVID (Acute) Biceps tendinitis of right shoulder (Chronic) Primary osteoarthritis, right shoulder (Chronic) Separation of right acromioclavicular joint, type 3 (Acute 11/23/17) Alcohol intake above recommended sensible limits (Acute) Chest pain (Acute) Essential hypertension (Acute) Inguinal hernia (Acute) Obesity (Acute) Continuous chewing tobacco dependence (Acute) Umbilical hernia without obstruction and without gangrene (Acute 04/03/18) Varicose veins of left lower extremity (Acute 02/29/16) Family History Father Heart disease Myocardial infarction Mother Essential hypertension Hyperlipidemia Sister No problems noted. Grandfather No problems noted. Grandfather Personal history of malignant neoplasm PROSTATE Grandmother Stroke Grandmother Stroke Social History Smoking/Tobacco Use Status: Current-Occasional Tobacco Type: smokeless tobacco Tobacco: How many years used: 30 Smokeless tobacco user: chewing tobacco Quit status: considering quitting Second Hand Exposure: Yes Smoking risk assessment performed?: Yes Alcohol Intake: current Alcohol Intake frequency: a few times a week Drug use: Never Substance use type: does not use Household members: spouse Housing: house Communication Needs: None Do you need help understanding health information?: Rarely Pets and animals: Yes Pets and animals: dog(s) Sexually active: Yes Do you think of yourself as: straight/heterosexual Current gender identity: male What is your relationship status?: How often do you talk on the phone with friends or family?: twice per week How often do you get together with friends or relatives?: once per week How often do you attend sabianist or taoism services?: decline to answer Do you belong to any clubs or organized social groups?: no Panel score (0-1 are the most socially isolated patients): 2 Veronika/Christianity: Religious Special veronika needs: No Seatbelt use: always Helmet use: Yes Helmet use: always Drive intox or ride w/intox nascar driver: No Do you feel safe at home: Yes Do you feel safe in your relationship?: Yes
--- NOTE | 2022-01-27 12:21 | W.PM.DS.N ---
DS: Diagnosis Discharge Diagnosis (1) Scrotal wall abscess: Status: Acute Discharge Plan Disposition Patient Disposition: HOME W/HOME HEALTH SERVICE Condition: Good Discharge Details Reason For Visit: Scrotal abscess Admit Date/Time: 01/23/22 09:37 Admit Provider: Nathaly Ortega Attending Provider: Nathaly Ortega Primary Care Provider: Alexis Rust Home Meds and New Rx's Prescriptions: New diazepam [Valium] 5 mg tablet 5 mg PO DAILY Qty: 20 0RF Rx Instructions: Take 1 hour prior to dressing change oxycodone 5 mg capsule 5 mg PO Q6H PRNQty: 20 0RF Rx Instructions: Take 1 pill 1 hour prior to dressing change and as needed for pain greater than a 7 amoxicillin-pot clavulanate 875-125 mg tablet 1 tab PO Q12H Qty: 10 0RF Rx Instructions: Take a probiotic daily while on antibiotics Bio-K plus 50 billion cell capsule,delayed release(DR/EC) 1 cap PO DAILY Qty: 30 0RF gabapentin 300 mg capsule 300 mg PO QHS Qty: 30 3RF oxycodone 5 mg tablet 5 mg PO Q6H PRNQty: 20 0RF Rx Instructions: Continue pain control 1 hour prior to dressing change, and as needed for breakthrough pain greater than a 7. This medication will make you constipated Continued ibuprofen 200 mg tablet 600 mg PO Q6H PRN0RF acetaminophen [Tylenol Extra Strength] 500 mg tablet 1,000 mg PO Q6H PRN0RF tramadol 50 mg tablet 50 mg PO Q6H PRN (Reason: pain) Qty: 7 0RF Bio-K plus 50 billion cell capsule,delayed release(DR/EC) 1 cap PO DAILY Qty: 30 0RF Rx Instructions: finish all multivitamin [Daily Multi-Vitamin] 1 EACH tablet 1 ea PO DAILY 0RF diphenhydramine HCl [Benadryl Allergy] 25 MG tablet 25 mg PO DAILY PRN 0RF hydrochlorothiazide 25 mg tablet 25 mg PO DAILY Qty: 90 4RF loratadine [Claritin Liqui-Gel] 10 mg capsule 10 mg PO PRN 0RF Discharge Instructions Additional Instructions: MEDICATIONS: Alternate Tylenol 1000mg by mouth every 8 hours and Ibuprofen 600mg every 6 hours. ?Make sure you take ibuprofen with food and not on an empty stomach. ?Take the Tylenol and ibuprofen continuously for the first 72hrs- not just when you have pain.? Use the oxycodone for breakthrough pain.? Use ICE!?? Twenty minutes on, and then off, continuously for the first 72hours. If you are taking oxycondone pain medication, follow the instructions on the label and do not drive. Pain medications can make you very constipated. Make sure you are moving your bowels daily. If not, take a dose of Miralax. Antibiotics can cause diarrhea. Make sure you take a probiotic daily and for a full 30days once you completed the antibiotics. -You can shower. Get in the shower and wet down the wound and the packing, and than remove packing. Wash out the wound w/ water. Than the home RN can re-pack. Follow up in surgical clinic on Sunday as previously scheduled Keep an ice bag on the incision. 20 minutes on and 20 minutes off. Ice keeps the swelling down and swelling causes pain. Make sure you wrap the ice pack in a towel and don't apply directly to the skin. -No driving x1 week or of you are taking narcotic pain medication. -Follow-up with Dr. Ortega Sunday at 10am -Regular diet -no straining to move bowels -pain meds are very constipating: if you do not move your bowels daily take a dose of OTC milk of magnesia -It is ok to shower. No bathe, soaking, swimming or hot tubs -You may find that your appetite is smaller. Eat 3-6 small meals throughout the day. It is important to drink lots of water after surgery, 6-10 glasses a day. -If you were given an incentive spirometry (breathing beauty culturist apprentice?), continue to do this 10x/hour while awake. -We do want you up walking, at least 5-6 times per day. This is very important to prevent pneumonia and blood clots. You can climb stairs, take them slowly. -No lifting over 5 pounds. -You may find that you are very tired after surgery- this is normal. -please do not smoke for a minimum of 72 hours after surgery -Home RN will come daily to change packing and bring supplies. Stand Alone Forms: Nursing Discharge Form Referrals: Nathaly Ortega DO [OSTEOPATHIC DOCTOR] - 01/30/22 10:00 am Activity:: see above Equipment/Supplies:: No Equipment Needed Diet:: As Tolerated Discharge Orders Discharge Orders: Discharge Order (Routine); Ordered 01/27/22 Ordered By: Nathaly Ortega DS: Summary Time Spent with Patient providing and/or coordinating discharge services: Less than 30 minutes Status at Discharge Functional status at discharge: independent ambulation Overall status at discharge: patient is back to baseline Mental Status: mental status grossly normal Speech and Movement: speech and movement normal Mood: congruent mood Affect: normal affect Exam Psych Mental Status: mental status grossly normal Speech and Movement: speech and movement normal Mood: congruent mood Affect: normal affect DS: Data Vitals/I&O Vitals and I&O: Vital Signs Temperature 36.4 C L 01/27/22 07:55 Temperature Source Skin 01/27/22 07:55 Pulse 83 01/27/22 07:55 Pulse Rhythm Regular 01/27/22 02:21 Respiratory Rate 18 01/27/22 07:55 Respiratory Effort Non-Labored 01/27/22 02:21 Respiratory Depth Normal 01/27/22 02:21 Respiratory Pattern Normal 01/27/22 02:21 Blood Pressure 150/90 H 01/27/22 07:55 Pulse Oximetry 94 01/27/22 07:55 Oxygen Delivery Method Room Air 01/27/22 07:55 Oxygen Flow Rate 0 01/27/22 07:55 Pain Level 2 01/27/22 10:44 Intake & Output 01/26/22 01/27/22 01/27/22 23:59 11:59 23:59 Intake Total 340 / 1070 100 / 100 Balance 340 / 1070 100 / 100 Intake: IV 100 / 100 100 / 100 Oral 240 / 970 Other: Comment voiding independently Voiding Methods Toilet Data Completed and Pending Labs on day of discharge: Preliminary micro results at discharge 01/23/22 10:44 Wound Culture - Preliminary Scrotum Escherichia coli Normal Pat 01/23/22 14:10 Surgical Culture - Preliminary Scrotum Gram Positive Ángel Normal Pat 01/23/22 14:10 Surgical Culture - Preliminary Scrotum Normal Pat 01/23/22 14:10 Surgical Culture - Preliminary Scrotum Normal Pat 01/23/22 14:10 Surgical Culture - Preliminary Scrotum Escherichia coli Normal Pat 01/23/22 10:38 Blood Culture - Preliminary Blood NO GROWTH 72 HOURS 01/23/22 10:35 Blood Culture - Preliminary Blood NO GROWTH 72 HOURS 01/23/22 14:10 Anaerobic Culture - Preliminary Scrotum Anaerobic Gram Positive Ángel 01/23/22 14:10 Anaerobic Culture - Preliminary Scrotum 01/23/22 14:10 Anaerobic Culture - Preliminary Scrotum Anaerobic Gram Negative Ángel 01/23/22 14:10 Anaerobic Culture - Preliminary Scrotum Anaerobic Gram Negative Ángel PFSH All Active Problems (Updated 01/23/22 @ 13:01 by Noble Kwan MD) Scrotal wall abscess (Acute) Varicose veins of left lower extremity (Acute 02/29/16) Umbilical hernia without obstruction and without gangrene (Acute 04/03/18) Continuous chewing tobacco dependence (Acute) CHEW Obesity (Acute) Essential hypertension (Acute) Chest pain (Acute) NEG STRESS TEST 2002 Alcohol intake above recommended sensible limits (Acute) H/O DWI Separation of right acromioclavicular joint, type 3 (Acute 11/23/17) Primary osteoarthritis, right shoulder (Chronic) Post Traumatic from AC separation 11/23/2017 Injected AC joint: 12/16/2018 Biceps tendinitis of right shoulder (Chronic) Intra-articular injection: 03/13/2019 COVID (Acute) 10/10 vaccinated Postoperative seroma (Acute) Status post right inguinal hernia repair (Acute) S/P repair of hydrocele (Acute) right Postoperative infection (Acute) Active Problem List Reducible right inguinal hernia (Acute) COVID (Acute) Biceps tendinitis of right shoulder (Chronic) Primary osteoarthritis, right shoulder (Chronic) Separation of right acromioclavicular joint, type 3 (Acute 11/23/17) Alcohol intake above recommended sensible limits (Acute) Chest pain (Acute) Essential hypertension (Acute) Inguinal hernia (Acute) Obesity (Acute) Continuous chewing tobacco dependence (Acute) Umbilical hernia without obstruction and without gangrene (Acute 04/03/18) Varicose veins of left lower extremity (Acute 02/29/16) Family History Father Heart disease Myocardial infarction Mother Essential hypertension Hyperlipidemia Sister No problems noted. Grandfather No problems noted. Grandfather Personal history of malignant neoplasm PROSTATE Grandmother Stroke Grandmother Stroke Social History Smoking/Tobacco Use Status: Current-Occasional Tobacco Type: smokeless tobacco Tobacco: How many years used: 30 Smokeless tobacco user: chewing tobacco Quit status: considering quitting Second Hand Exposure: Yes Smoking risk assessment performed?: Yes Alcohol Intake: current Alcohol Intake frequency: a few times a week Drug use: Never Substance use type: does not use Household members: spouse Housing: house Communication Needs: None Do you need help understanding health information?: Rarely Pets and animals: Yes Pets and animals: dog(s) Sexually active: Yes Do you think of yourself as: straight/heterosexual Current gender identity: male What is your relationship status?: How often do you talk on the phone with friends or family?: twice per week How often do you get together with friends or relatives?: once per week How often do you attend episcopalian or church services?: decline to answer Do you belong to any clubs or organized social groups?: no Panel score (0-1 are the most socially isolated patients): 2 Veronika/Orthodox: Congregational Special veronika needs: No Seatbelt use: always Helmet use: Yes Helmet use: always Drive intox or ride w/intox grain combine driver: No Do you feel safe at home: Yes Do you feel safe in your relationship?: Yes
--- NOTE | 2022-01-27 12:37 | DSE_ITS ---
DS: Diagnosis Discharge Diagnosis (1) Scrotal wall abscess: Status: Acute Discharge Plan Disposition Patient Disposition: HOME W/HOME HEALTH SERVICE Condition: Good Discharge Details Reason For Visit: Scrotal abscess Admit Date/Time: 01/23/22 09:37 Admit Provider: Nathaly Ortega Attending Provider: Nathaly Ortega Primary Care Provider: Alexis Rust Home Meds and New Rx's Prescriptions: New diazepam [Valium] 5 mg tablet 5 mg PO DAILY Qty: 20 0RF Rx Instructions: Take 1 hour prior to dressing change oxycodone 5 mg capsule 5 mg PO Q6H PRNQty: 20 0RF Rx Instructions: Take 1 pill 1 hour prior to dressing change and as needed for pain greater than a 7 amoxicillin-pot clavulanate 875-125 mg tablet 1 tab PO Q12H Qty: 10 0RF Rx Instructions: Take a probiotic daily while on antibiotics Bio-K plus 50 billion cell capsule,delayed release(DR/EC) 1 cap PO DAILY Qty: 30 0RF gabapentin 300 mg capsule 300 mg PO QHS Qty: 30 3RF oxycodone 5 mg tablet 5 mg PO Q6H PRNQty: 20 0RF Rx Instructions: Continue pain control 1 hour prior to dressing change, and as needed for breakthrough pain greater than a 7. This medication will make you constipated naloxone [Narcan] 4 mg/actuation spray,non-aerosol 4 mg intranasal Q2M PRNQty: 1 0RF Rx Instructions: spray 1 dose into ONE nostril; alternate nostrils w each dose until help arrives Continued ibuprofen 200 mg tablet 600 mg PO Q6H PRN0RF acetaminophen [Tylenol Extra Strength] 500 mg tablet 1,000 mg PO Q6H PRN0RF tramadol 50 mg tablet 50 mg PO Q6H PRN (Reason: pain) Qty: 7 0RF Bio-K plus 50 billion cell capsule,delayed release(DR/EC) 1 cap PO DAILY Qty: 30 0RF Rx Instructions: finish all multivitamin [Daily Multi-Vitamin] 1 EACH tablet 1 ea PO DAILY 0RF diphenhydramine HCl [Benadryl Allergy] 25 MG tablet 25 mg PO DAILY PRN 0RF hydrochlorothiazide 25 mg tablet 25 mg PO DAILY Qty: 90 4RF loratadine [Claritin Liqui-Gel] 10 mg capsule 10 mg PO PRN 0RF Discharge Instructions Additional Instructions: MEDICATIONS: Alternate Tylenol 1000mg by mouth every 8 hours and Ibuprofen 600mg every 6 hours. ?Make sure you take ibuprofen with food and not on an empty sto mach. ?Take the Tylenol and ibuprofen continuously for the first 72hrs- not just when you have pain.? Use the oxycodone for breakthrough pain.? Use ICE!?? Twenty minutes on, and then off, continuously for the first 72hours. If you are taking oxycondone pain medication, follow the instructions on the label and do not drive. Pain medications can make you very constipated. Make sure you are moving your bowels daily. If not, take a dose of Miralax. Antibiotics can cause diarrhea. Make sure you take a probiotic daily and for a full 30days once you completed the antibiotics. -You can shower. Get in the shower and wet down the wound and the packing, and than remove packing. Wash out the wound w/ water. Than the home RN can re- pack. Follow up in surgical clinic on Sunday as previously scheduled Keep an ice bag on the incision. 20 minutes on and 20 minutes off. Ice keeps the swelling down and swelling causes pain. Make sure you wrap the ice pack in a towel and don't apply directly to the skin. -No driving x1 week or of you are taking narcotic pain medication. -Follow-up with Dr. Ortega Sunday at 10am -Regular diet -no straining to move bowels -pain meds are very constipating: if you do not move your bowels daily take a dose of OTC milk of magnesia -It is ok to shower. No bathe, soaking, swimming or hot tubs -You may find that your appetite is smaller. Eat 3-6 small meals throughout the day. It is important to drink lots of water after surgery, 6-10 glasses a day. -If you were given an incentive spirometry (breathing hedge fund accountant?), continue to do this 10x/hour while awake. -We do want you up walking, at least 5-6 times per day. This is very important to prevent pneumonia and blood clots. You can climb stairs, take them slowly. -No lifting over 5 pounds. -You may find that you are very tired after surgery- this is normal. -please do not smoke for a minimum of 72 hours after surgery -Home RN will come daily to change packing and bring supplies. Stand Alone Forms: Nursing Discharge Form Referrals: Nathaly Ortega DO [OSTEOPATHIC DOCTOR] - 01/30/22 10:00 am Activity:: see above Equipment/Supplies:: No Equipment Needed Diet:: As Tolerated Discharge Orders Discharge Orders: Discharge Order (Routine); Ordered 01/27/22 Ordered By: Nathaly Ortega DS: Summary Time Spent with Patient providing and/or coordinating discharge services: Less than 30 minutes Status at Discharge Functional status at discharge: independent ambulation Overall status at discharge: patient is back to baseline Mental Status: mental status grossly normal Speech and Movement: speech and movement normal Mood: congruent mood Affect: normal affect Exam Psych Mental Status: mental status grossly normal Speech and Movement: speech and movement normal Mood: congruent mood Affect: normal affect DS: Data Vitals/I&O Vitals and I&O: Vital Signs Temperature 36.4 C L 01/27/22 07:55 Temperature Source Skin 01/27/22 07:55 Pulse 83 01/27/22 07:55 Pulse Rhythm Regular 01/27/22 02:21 Respiratory Rate 18 01/27/22 07:55 Respiratory Effort Non-Labored 01/27/22 02:21 Respiratory Depth Normal 01/27/22 02:21 Respiratory Pattern Normal 01/27/22 02:21 Blood Pressure 150/90 H 01/27/22 07:55 Pulse Oximetry 94 01/27/22 07:55 Oxygen Delivery Method Room Air 01/27/22 07:55 Oxygen Flow Rate 0 01/27/22 07:55 Pain Level 2 01/27/22 10:44 Intake & Output 01/26/22 01/27/22 01/27/22 23:59 11:59 23:59 Intake Total 340 / 1070 100 / 100 Balance 340 / 1070 100 / 100 Intake: IV 100 / 100 100 / 100 Oral 240 / 970 Other: Comment voiding independently Voiding Methods Toilet Data Completed and Pending Labs on day of discharge: Preliminary micro results at discharge 01/23/22 10:44 Wound Culture - Preliminary Scrotum Escherichia coli Normal Pat 01/23/22 14:10 Surgical Culture - Preliminary Scrotum Gram Positive Ángel Normal Pat 01/23/22 14:10 Surgical Culture - Preliminary Scrotum Normal Pat 01/23/22 14:10 Surgical Culture - Preliminary Scrotum Normal Pat 01/23/22 14:10 Surgical Culture - Preliminary Scrotum Escherichia coli Normal Pat 01/23/22 10:38 Blood Culture - Preliminary Blood NO GROWTH 72 HOURS 01/23/22 10:35 Blood Culture - Preliminary Blood NO GROWTH 72 HOURS 01/23/22 14:10 Anaerobic Culture - Preliminary Scrotum Anaerobic Gram Positive Ángel 01/23/22 14:10 Anaerobic Culture - Preliminary Scrotum 01/23/22 14:10 Anaerobic Culture - Preliminary Scrotum Anaerobic Gram Negative Ángel 01/23/22 14:10 Anaerobic Culture - Preliminary Scrotum Anaerobic Gram Negative Ángel PFSH All Active Problems (Updated 01/23/22 @ 13:01 by Noble Kwan MD) Scrotal wall abscess (Acute) Varicose veins of left lower extremity (Acute 02/29/16) Umbilical hernia without obstruction and without gangrene (Acute 04/03/18) Continuous chewing tobacco dependence (Acute) CHEW Obesity (Acute) Essential hypertension (Acute) Chest pain (Acute) NEG STRESS TEST 2002 Alcohol intake above recommended sensible limits (Acute) H/O DWI Separation of right acromioclavicular joint, type 3 (Acute 11/23/17) Primary osteoarthritis, right shoulder (Chronic) Post Traumatic from AC separation 11/23/2017 Injected AC joint: 12/16/2018 Biceps tendinitis of right shoulder (Chronic) Intra-articular injection: 03/13/2019 COVID (Acute) 10/10 vaccinated Postoperative seroma (Acute) Status post right inguinal hernia repair (Acute) S/P repair of hydrocele (Acute) right Postoperative infection (Acute) Active Problem List Reducible right inguinal hernia (Acute) COVID (Acute) Biceps tendinitis of right shoulder (Chronic) Primary osteoarthritis, right shoulder (Chronic) Separation of right acromioclavicular joint, type 3 (Acute 11/23/17) Alcohol intake above recommended sensible limits (Acute) Chest pain (Acute) Essential hypertension (Acute) Inguinal hernia (Acute) Obesity (Acute) Continuous chewing tobacco dependence (Acute) Umbilical hernia without obstruction and without gangrene (Acute 04/03/18) Varicose veins of left lower extremity (Acute 02/29/16) Family History Father Heart disease Myocardial infarction Mother Essential hypertension Hyperlipidemia Sister No problems noted. Grandfather No problems noted. Grandfather Personal history of malignant neoplasm PROSTATE Grandmother Stroke Grandmother Stroke Social History Smoking/Tobacco Use Status: Current-Occasional Tobacco Type: smokeless tobacco Tobacco: How many years used: 30 Smokeless tobacco user: chewing tobacco Quit status: considering quitting Second Hand Exposure: Yes Smoking risk assessment performed?: Yes Alcohol Intake: current Alcohol Intake frequency: a few times a week Drug use: Never Substance use type: does not use Household members: spouse Housing: house Communication Needs: None Do you need help understanding health information?: Rarely Pets and animals: Yes Pets and animals: dog(s) Sexually active: Yes Do you think of yourself as: straight/heterosexual Current gender identity: male What is your relationship status?: How often do you talk on the phone with friends or family?: twice per week How often do you get together with friends or relatives?: once per week How often do you attend episcopal or methodist services?: decline to answer Do you belong to any clubs or organized social groups?: no Panel score (0-1 are the most socially isolated patients): 2 Veronika/Druze: Sabianist Special veronika needs: No Seatbelt use: always Helmet use: Yes Helmet use: always Drive intox or ride w/intox cdl company driver: No Do you feel safe at home: Yes Do you feel safe in your relationship?: Yes
--- NOTE | 2022-01-27 16:13 | CMDISCH_ITS ---
- If Service Date Differs Date of service: 01/27/22 Time of Service: 16:17 LACE Index Scoring Tool - Questions: Length of Stay (in days): 4 - 6 Acuity (Admit via E.D.?): Yes E.D. Visits: 0 - Answers: Total Score: 7 Risk of Readmission: Low Risk Care Management Discharge Reason for Hospitalization: Postoperative infection of scrotum Discharge Plan: Greg returned home with new orders for HH RN for daily dressing changes. CM informed [facility] of his discharge today. His drove him home via private vehicle. He will follow up with surgical services, his PCP and discharge plan of care. He was happy to be going home. Patient/Family Education Needs: Review discharge instructions and limitations, discussion of self care needs including ask me three. Services Needed at Discharge: Home Health Care Services (HH RN)
== END 2022-01-27 12:34 | disposition home health service (06) | DRG 858 ==
PROVIDERS: Urology; Admitting Provider Surgery; PCP Emergency Medicine; Visit Provider Surgery
PROC: 0V950ZZ Drainage of Scrotum, Open Approach (ICD-10-PCS; CPT 55100; principal; 2022-01-23 13:00)
PROC: 0HDAXZZ Extraction of Inguinal Skin, External Approach (ICD-10-PCS; CPT 97597; principal; 2022-01-24 08:30)
DX: T81.40XA Infection following a procedure, unspecified, initial encounter (principal); N49.2 Inflammatory disorders of scrotum; I10 Essential (primary) hypertension; F17.220 Nicotine dependence, chewing tobacco, uncomplicated; E66.9 Obesity, unspecified; Z68.35 Body mass index [BMI] 35.0-35.9, adult; M19.011 Primary osteoarthritis, right shoulder; M75.21 Bicipital tendinitis, right shoulder; Z86.16 Personal history of COVID-19; I83.92 Asymptomatic varicose veins of left lower extremity; B96.20 Unspecified Escherichia coli [E. coli] as the cause of diseases classified elsewhere
CPT/HCPCS: 97597; 55100; 11042; 36415; 80053; 87040; 87077; 87635; J1650; 76870; 85025; 86140; 87070; 87075; 87186; 87205; J1885; J2270; J2405

== ENCOUNTER 2022-09-06 03:20 | Outpatient (CLI) | payer BC, SELFPAY ==
[2022-09-06 13:06] LABS: CREATININE 1.1 mg/dL (0.70-1.30); Cholesterol 161 mg/dL (<200); Estimated GFR 82.81 (mL/min/1.73m2); HDL Cholesterol 43 mg/dL (40-60); Potassium 3.9 mmol/L (3.5-5.1); Triglyceride 403 mg/dL (<150)
[2022-09-06 13:25] LABS: LDL CHOLESTEROL 83 mg/dL (<100)
== END 2022-09-06 03:21 | disposition home or self-care (01) ==
LOC: LBO 03:20
PROVIDERS: PCP Nurse Practitioner Family; Visit Provider Nurse Practitioner Family
DX: I10 Essential (primary) hypertension (principal); Z13.220 Encounter for screening for lipoid disorders
CPT/HCPCS: 36415; 80061; 83721; 82565; 84132

== ENCOUNTER 2022-12-28 12:26 | Outpatient (CLI) | payer BC, SELFPAY ==
[2022-12-28 14:07] LABS: HCT 42.3 % (40.0-50.0); HGB 14.3 g/dL (13.5-17.5); MCH 29.4 pg (27.0-33.0); MCHC 33.8 % (32.0-36.0); MCV 87 fL (80-95); MPV 9.7 fL (8.0-11.0); Platelet Count 295 10^3/uL (130-400); RBC 4.86 10^6/uL (4.36-5.78); RDW 12.8 % (11.8-14.1); RDW-SD 39.7 fL; WBC 10.43 10^3/uL (4.4-10.8)
[2022-12-28 14:13] LABS: ESR 34 mm/hr (0-15)
[2022-12-28 14:25] LABS: Hemoglobin A1C 5.6 % (<5.7)
[2022-12-28 14:27] LABS: ALT 46 U/L (16-63); AST 20 U/L (15-37); Alkaline Phosphatase 69 U/L (46-116); BUN 15 mg/dL (7-18); Bilirubin, Total 0.7 mg/dL (0.2-1.0); CREATININE 1.3 mg/dL (0.70-1.30); Calcium 9.5 mg/dL (8.5-10.1); Chloride 98 mmol/L (98-107); Estimated GFR 67.34 (mL/min/1.73m2); Glucose 115 mg/dL (74-106); Potassium 4.2 mmol/L (3.5-5.1); Sodium 138 mmol/L (136-145); Total Protein 8.6 g/dL (6.4-8.2)
[2023-01-01 09:28] LABS: Lyme Ab w Rflx to Lyme Confirm Negative (Negative)
[2023-01-01 16:24] LABS: Anaplasma phagocytophilum Negative (Negative); B. miyamotoi PCR Negative (Negative); Babesia divergens/MO-1 Negative (Negative); Babesia duncani Negative (Negative); Babesia microti Negative (Negative); Ehrlichia chaffeensis Negative (Negative); Ehrlichia ewingii/canis Negative (Negative); Ehrlichia muris eauclairensis Negative (Negative)
== END 2022-12-28 12:27 | disposition home or self-care (01) ==
LOC: LBO 12:33
PROVIDERS: PCP Nurse Practitioner Family; Visit Provider Nurse Practitioner Family
DX: M25.50 Pain in unspecified joint (principal); I10 Essential (primary) hypertension; R73.09 Other abnormal glucose; E66.8 Other obesity; Z79.899 Other long term (current) drug therapy
CPT/HCPCS: 36415; 80053; 85027; 85652; 87798; 83036; 86618

== ENCOUNTER 2023-07-02 07:44 | Day surgery (SDC) | payer BC, SELFPAY ==
--- NOTE | 2023-07-01 18:27 | W.ANESPRE ---
General Info Date of Service Date Performed: 07/02/23 Height: 6 ft 2 in Weight: 130.181 kg Body Mass Index (BMI): 36.8 Surgical Procedure: Operation Date: 07/02/23 09:05 Proposed Procedure Side Surgeon yelena Guajardo MD Meds Allergies and Home Medications Allergies Allergy/AdvReac Type Severity Reaction Status Date / Time HAY FEVER Allergy Unknown Uncoded 07/02/23 08:00 Home Medication Medication Instructions Recorded diphenhydramine HCl 25 mg tablet 25 mg PO DAILY PRN 02/05/13 (Benadryl Allergy) multivitamin (Daily Multi-Vitamin 1 ea PO DAILY 02/05/13 tablet) loratadine 10 mg capsule (Claritin 10 mg PO PRN 09/05/21 Liqui-Gel) acetaminophen 500 mg tablet 1,000 mg PO Q6H PRN 12/05/21 (Tylenol Extra Strength) ibuprofen 200 mg tablet 600 mg PO Q6H PRN 12/05/21 losartan 50 mg tablet 50 mg PO DAILY #90 tabs 02/02/23 prednisone 5 mg tablet 5 mg PO BID #180 tabs 02/14/23 hydrochlorothiazide 25 mg tablet 25 mg PO DAILY #90 tabs 05/14/23 Current Visit Medications: Current Medications Generic Name Dose Route Start Last Admin Trade Name Freq PRN Reason Stop Dose Admin Ringer's Solution 1,000 mls @ 80 mls/hr 07/02/23 06:00 IV 07/29/23 23:59 INFUSION EUGENE IV Miscellaneous Supplies 1 each 07/02/23 06:00 Iv Access IV 07/29/23 23:59 DIRECTED EUGENE Sodium Chloride 0 ml 07/02/23 06:00 Normal Saline Flush 10 Ml Syr IV 07/29/23 23:59 PRN PRN Sodium Chloride 0 ml 07/02/23 06:00 Normal Saline 10 Ml Vial IJ 07/29/23 23:59 DIRECTED PRN Sterile Water 0 ml 07/02/23 06:00 Water,Injection,Sterile 10 Ml Vial IJ 07/29/23 23:59 DIRECTED PRN PFSH Active Problems Active Problems: Problem Status Onset Code Polymyalgia rheumatica M35.3 Abdominal pain R10.9 Varicose veins of left lower extremity 02/29/16 I83.92 Continuous chewing tobacco dependence F17.220 Obesity E66.9 Essential hypertension I10 Alcohol intake above recommended sensible limits Z72.89 Primary osteoarthritis, right shoulder M19.011 Biceps tendinitis of right shoulder M75.21 COVID U07.1 Medical History Medical History Chest pain NEG STRESS TEST 2002 Separation of right acromioclavicular joint, type 3 (11/23/17) Surgical History Surgical History S/P repair of hydrocele right Status post right inguinal hernia repair Tobacco Smoking/Tobacco Use Status: Current every day Tobacco Type: smokeless tobacco Smokeless tobacco user: chewing tobacco Second hand exposure: Yes Alcohol Alcohol Intake: current Alcohol intake frequency: 3 or more drinks per day Alcohol type: beer Details: reports 6-12 beers/day Substance Use Substance use: Never Substance use type: does not use Vital Signs and Lab Results Vital Signs Most Recent Vital Signs in EMR: Temp Pulse Resp BP Pulse Ox 36.5 C 69 17 134/95 H 98 07/02/23 07:54 07/02/23 07:54 07/02/23 07:54 07/02/23 07:54 07/02/23 07:54 Lab Results Blood Type / Crossmatch: No Data to Display Complete Blood Count: No Data to Display Complete Metabolic Panel: No Data to Display Liver Function Panel: No Data to Display Coagulation Panel: No Data to Display Cardiac Panel: No Data to Display Arterial Blood Gas: No Data to Display Venous Blood Gas: No Data to Display Pancreas Panel: No Data to Display Thyroid Panel: No Data to Display Infectious Disease: No Data to Display Blood Cultures: No Data to Display Toxicology Panel: No Data to Display Anesthesia Assessment and Plan Anesthesia History Personal History: No History of Anesthesia Complications Family History: No Family History of Anesthesia Complications Exercise Tolerance Exercise Tolerance: Metabolic Equivalents>4 Pertinent Negatives Pertinent Negatives: No Symptoms of GERD Cardiac & Pulmonary Exam Cardiac Exam: Normal S1/S2 Heart Sounds Pulmonary Exam: Clear Bilateral Breath Sounds Implantable Cardiac Device Does patient have a Pacemaker or an ICD?: No Airway Exam Known Difficult Airway: No Mallampati Class: 2 Mouth Opening: Normal (> 3cm) Thyromental Distance: Greater than 3 cm Neck Range of Motion: Full ROM Neck Circumference: Thick Teeth Condition: Normal Dentition ASA Classification ASA Score: ASA 2 Emergency Case?: No NPO Status NPO Status: NPO Clears >2 hours, Solids >8 hours Anesthesia Plan Resuscitation Status: Full Code Anesthesia Technique: General Anesthesia Airway Planned: Natural Airway Monitors Used: Standard Monitors Preoperative Comments:: 46 yo male for colo. Sig PMHx: HTN, polymyalgia (prednisone), chewing tobacco, EtOH. Previous Anes: - mac 4 2a, easy mask. - spinal, 2 attempts 1st with 25 ga with no csf, 2nd with 22 quincke. - dressing change, ketamine, prop, natural airway. no issues.
--- NOTE | 2023-07-01 21:07 | PDOC.DSDIS_ITS ---
Date of service: 07/02/23 Time of Service: 09:11 Discharge Plan Disposition Patient Disposition: Home Condition: Good Discharge Details Reason For Visit: colonoscopy Attending Provider: Alban Guajardo Primary Care Provider: Todd Bowles Home Meds and New Rx's Prescriptions: Continued ibuprofen 200 mg tablet 600 mg PO Q6H PRN acetaminophen [Tylenol Extra Strength] 500 mg tablet 1,000 mg PO Q6H PRN multivitamin [Daily Multi-Vitamin] 1 EACH tablet 1 ea PO DAILY diphenhydramine HCl [Benadryl Allergy] 25 MG tablet 25 mg PO DAILY PRN losartan 50 mg tablet 50 mg PO DAILY Qty: 90 3RF prednisone 5 mg tablet 5 mg PO BID Qty: 180 3RF hydrochlorothiazide 25 mg tablet 25 mg PO DAILY Qty: 90 4RF Claritin Liqui-Gel 10 mg capsule 10 mg PO PRN Discontinued bisacodyl [Dulcolax (bisacodyl)] 5 mg tablet,delayed release (DR/EC) 5 mg PO ONCE Qty: 4 0RF Rx Instructions: Take per colonoscopy instructions provided by ordering providers office polyethylene glycol 3350 17 gram/dose powder 17 g PO ONCE Qty: 238 0RF Rx Instructions: Take per colonoscopy instructions provided by ordering providers office Discharge Instructions Instructions: Colorectal Polyps (GEN), Diverticulosis (GEN), Diverticulosis Diet (GEN) Additional Instructions: Greg, we were able to complete your colonoscopy without any problems at all today. I found a total of 4 polyps. I removed these all completely. I will be in touch when I get the results of the pathology report describing the nature of the polyps with my final recommendations. Incidentally, he also had a fair amount of diverticulosis. These are weak spots in the colon wall that many patients get as they age. The best way to take care of them is with a well- balanced diet that is rich in dietary fiber. I typically recommend at the very least 25 to 30 g of fiber every day. I have attached some general information here regarding management of diverticulosis. 1. If tolerated, consume a soft, low fiber diet for 1-2 days. 2. Do not drive, drink alcohol, operate machinery, make critical decisions, or do activities that require coordination or balance for 24 hours. 3. Because air was put into your colon during the procedure, expelling air from your rectum (passing gas or farting) is normal. 4. You may not have a bowel movement for 1-3 days because of the colonoscopy prep. This is normal. 5. Go directly to the emergency room if you notice any of the following: Develop chills (warm to touch), or if you have a thermometer and your temperature is above 101 Difficulty breathing or difficultly swallowing Persistent vomiting Severe abdominal pain, other than gas cramps Severe chest pain Black, tarry stools Any bleeding ? exceeding one tablespoon 6. Call your physician if the site where your intravenous was started becomes red, swollen, painful, and warm to touch. 7. Your physician has reviewed your pre-procedure medications. Please continue to take those medications as previously ordered. You will be given specific information/education regarding any changes to your medications before leaving. Activity:: Activity as Tolerated Diet:: As Tolerated Discharge Orders Discharge Orders: Discharge Order (Routine); Ordered 07/01/23 Ordered By: Alban Guajardo DS: Diagnosis Discharge Diagnosis (1) Screen for colon cancer: Status: Acute Asessment and Plan: I will follow-up on polypectomy results
--- NOTE | 2023-07-01 21:09 | W.COLOREPORT ---
Date of service: 07/02/23 Time of Service: 09:13 Colonoscopy Report Date of procedure: 07/02/23 Pre-op diagnosis general: Screening colonscopy Post-op diagnosis procedure note: other (Diverticulosis, colorectal polyps) Procedure: Colonoscopy with polypectomy Surgeon: Alban Guajardo Anesthesia Type: General:No Airway Estimated blood loss (mL): 10 Pathology: other (Rectal polyps x2, ascending colon polyp, polyp at 70 cm) Complications: None Disposition: same day Indications: Greg is 47 years old and he needs a screening colonoscopy. Prep: Miralax/Dulcolax Procedure Start Time: 08:38 Procedure End Time: 09:00 Retraction Time: 14 Findings: Rectal polyps x2, ascending colon polyp, polyp at 70 cm Procedure Description: After the induction of monitored anesthetic care, and with the patient in left lateral decubitus position, I began by performing an external anorectal exam.? Perineum and skin were normal, as was the anal verge.? There was no evidence of external hemorrhoids.? Next, I performed a digital rectal exam.? I did not appreciate any abnormal findings.? Next, I advanced a colonoscope into the rectal vault.? I performed retroflexion.? This appeared normal.? Within the distal rectum are 2 polyps. Both were less than 0.25 cm. I removed both of these with cold forceps. There was minimal bleeding. Using insufflation, I then advanced the colonoscope beyond the rectal folds and into the sigmoid colon before advancing towards the cecum.? The quality of the prep was excellent.? There was sigmoid diverticulosis. The scope was noted to be in the cecum by identification of the ileocecal valve and appendiceal orifice.? I then began withdrawing the colonoscope using repeated irrigation as necessary for full evaluation of the colonic mucosa. Within the ascending colon was a 0.5 cm sessile polyp. I removed this with cold forcep polypectomy and multiple bites. I removed it completely. There was minimal bleeding. Similarly around 70 cm from the anal verge I identified a 0.5 cm polyp. ?It appeared sessile in character. ?I was able to remove this with a cold forceps. ?I examined the site, and there was minimal bleeding. ?Once this was completed, I continued to withdraw the scope and examine the remainder of the colonic mucosa. Once the scope was withdrawn to the level of the rectum, great care was taken to examine portions of the rectal folds.? Finally, the scope was withdrawn and the patient was brought to the same-day surgery recovery unit as the anesthetic wore off. ?The findings and instructions were shared with the patient prior to discharge.
[2023-07-02 07:54] VITALS: BP 134/95; PULSE 69; RESP 17; TEMP 36.5; O2SAT 98
[2023-07-02] MEDS: Lactated Ringers 1,000 ML 80 ML IV (08:09)
[2023-07-02 08:19] VITALS: BMI 36.8
--- NOTE | 2023-07-02 08:41 | BOWEL_PTH ---
PATIENT: Greg Esteves LOC: [facility] U#:[id number] AGE/SX: 47/M ROOM: RE07/02/[address]: Alban Guajardo MD : [id number] BED: DIS: 07/02/2023 SPEC #: [id number] RECD: 07/02/23 12:49 STATUS: PIPPA RE #: [id number] JORDAN: 07/02/23 08:[address]: Alban Guajardo DEPT: Surgical Specimen RECD BY: Radha Mahan ENTERED: 07/02/23 12:50 SP TYPE: Bowel OTHR DR: Todd Bowles, SOC[employer] WELFARE RESEARCH WORKER Tissues: 1 - BIOPSY BOWEL 2 - BIOPSY BOWEL 3 - BIOPSY BOWEL 4 - BIOPSY BOWEL Procedures: GROSS AND MICRO LEVEL 4 Comments: [id number]
[2023-07-02 09:00] VITALS: BP 123/86; PULSE 89; RESP 18; TEMP 36.4; O2SAT 94
--- NOTE | 2023-07-02 09:17 | W.ANESPOSTOP ---
Postoperative Evaluation Date, Time and Location Date Performed: 07/02/23 Time Performed: 09:17 Patient Location: Day Surgery Unit Vital Signs Most Recent Imported Vital Signs: Most Recent Vital Signs Temp Pulse Resp BP Pulse Ox 36.4 C L 89 18 123/86 94 07/02/23 09:00 07/02/23 09:00 07/02/23 09:00 07/02/23 09:00 07/02/23 09:00 Pain Score Most Recent Pain Score: Most Recent Pain Score Pain Level 0 07/02/23 09:00 Assessment Mental Status: Awake (Alert & Oriented to Patient Baseline) Airway and Respiratory Function: Patent airway with normal (patient baseline) respiratory exam Cardiovascular Function: Hemodynamically Stable Hydration Status: Adequately Hydrated Nausea & Vomiting: No Nausea or Vomiting Pain: Pt. Denies Any Pain Peripheral Nerve Block: Patient did not receive a nerve block
[2023-07-02 09:21] VITALS: BP 129/87; PULSE 74; RESP 18; TEMP 36.4; O2SAT 96
== END 2023-07-02 09:30 | disposition home or self-care (01) ==
PROVIDERS: PCP Nurse Practitioner Family; Visit Provider Surgery
PROC: 0DJD8ZZ Inspection of Lower Intestinal Tract, Via Natural or Artificial Opening Endoscopic (ICD-10-PCS; CPT 45378; principal; 2023-07-02 09:00)
DX: Z12.11 Encounter for screening for malignant neoplasm of colon (principal); D12.2 Benign neoplasm of ascending colon; K57.30 Diverticulosis of large intestine without perforation or abscess without bleeding; K62.1 Rectal polyp; D12.4 Benign neoplasm of descending colon
CPT/HCPCS: 45380; 88305; J2704

== ENCOUNTER 2023-09-05 03:08 | Outpatient (CLI) | payer BC, SELFPAY ==
[2023-09-05 14:13] LABS: CREATININE 1.2 mg/dL (0.70-1.30); Calculated LDL 56 mg/dL (<100); Cholesterol 158 mg/dL (<200); Estimated GFR 74.13 (mL/min/1.73m2); HDL Cholesterol 50 mg/dL (40-60); Potassium 3.8 mmol/L (3.5-5.1); Triglyceride 262 mg/dL (<150)
[2023-09-05 23:09] LABS: PSA, Screening 0.5 ng/mL (<=2.5)
== END 2023-09-05 03:09 | disposition home or self-care (01) ==
LOC: LBO 03:09
PROVIDERS: PCP Nurse Practitioner Family; Visit Provider Nurse Practitioner Family
DX: Z13.220 Encounter for screening for lipoid disorders (principal); Z12.5 Encounter for screening for malignant neoplasm of prostate; I10 Essential (primary) hypertension
CPT/HCPCS: 36415; 80061; 84153; 82565; 84132

== ENCOUNTER 2024-04-16 06:13 | Day surgery (SDC) | payer BC, SELFPAY ==
--- NOTE | 2024-04-15 16:11 | PDOC.DSDIS_ITS ---
Date of service: 04/16/24 Time of Service: 08:46 Discharge Plan Disposition Patient Disposition: Home Condition: Good Discharge Details Reason For Visit: Laparoscopic umbilical hernia repair Attending Provider: Alban Guajardo Primary Care Provider: Todd Bowles Home Meds and New Rx's Prescriptions: New tramadol 50 mg tablet 50 mg PO Q8H PRNQty: 12 0RF Rx Instructions: Take 1 tablet by mouth up to every 8 hours if needed for more severe pain. These can be broken in half for smaller doses. Continued Saccharomyces boulardii [Daily Probiotic (S. boulardii)] 250 mg capsule 250 mg PO BID sildenafil [Viagra] 50 mg tablet 50 mg PO DAILY PRN (Reason: sexual activity) Qty: 10 3RF Rx Instructions: administer 30 minutes to 4 hours before activity losartan 50 mg tablet 50 mg PO DAILY Qty: 90 3RF multivitamin [Daily Multi-Vitamin] 1 EACH tablet 1 ea PO DAILY diphenhydramine HCl [Benadryl Allergy] 25 MG tablet 25 mg PO DAILY PRN hydrochlorothiazide 25 mg tablet 25 mg PO DAILY Qty: 90 4RF prednisone 5 mg tablet 5 mg PO BID Qty: 180 3RF Claritin Liqui-Gel 10 mg capsule 10 mg PO PRN Discharge Instructions Additional Instructions: Greg, we were able to repair your hernia today with the laparoscope, just like we talked about beforehand everything went very smoothly, and hopefully this repair will serve you well for years to come. We also performed intraoperative nerve blocks to help reduce pain after surgery. Hopefully you will be comfortable. I have added a prescription for some pain medications if Tylenol and ibuprofen are not enough to control the pain. You may notice some bruising around the port sites on the left upper part of your abdomen in the next few days. That is pretty common so do not be alarmed if it happens. If you need anything at all, please do not hesitate to call, otherwise, we will look forward to seeing you in the office. 1. Resume all of your regular medications. 2. Alternate heating pads and ice packs as needed for pain. I recommend 15- minute intervals 3. Alternate [id number] Tylenol and ibuprofen every 6 hours for the first 2 days, then use as needed. Use tramadol if the Tylenol and ibuprofen are not strong enough. 4. Leave bandages in place for 24 hours, then remove. 5. Shower with warm soapy water. Pat dry. Use a bandaid if needed to protect your clothing. 6. No soaking or tub baths until I see you in the office. 7. No heavy lifting until I see you in the office. 8. Call the office (or go directly to the emergency room after hours) if you notice any of the following: Develop chills (warm to touch), or if you have a thermometer and your temperature is above 101 Difficulty breathing or difficultly swallowing Persistent vomiting Any bleeding ? exceeding one tablespoon 9. Call your physician if the site where your intravenous was started becomes red, swollen, painful, and warm to touch. Activity:: No heavy lifting Remove Dressings/Wound Care:: 24 hours Shower/Bathe:: 24 hours Diet:: As Tolerated Discharge Orders Discharge Orders: Discharge Order (Routine); Ordered 04/15/24 Ordered By: Alban Guajardo DS: Diagnosis Discharge Diagnosis (1) Hernia, umbilical: Status: Acute Asessment and Plan: Routine postoperative follow-up
--- NOTE | 2024-04-15 16:14 | ROE_ITS ---
Date of service: 04/16/24 Time of Service: 08:49 Operative Note Operative Note DATE OF PROCEDURE: 04/16/24 PRE-OP DIAGNOSIS: Umbilical hernia PROCEDURE: Laparoscopic umbilical hernia repair with intraoperative tap blocks SURGEON: Alban Guajardo LASTEX THREAD WINDER: Valeria Stevens ANESTHESIA TYPE: General LMA/ETT Refer to Anesthesia Record ESTIMATED BLOOD LOSS: 10 PATHOLOGY: none sent COMPLICATIONS: None Patient was transported to: PACU Patient's condition: stable Implants: Ventralex ST round hernia patch Indications: Greg is a 48-year-old male with a symptomatic umbilical hernia Findings: Fat-containing umbilical hernia Procedure Description: I met with Greg in the preoperative area, discussed the plan for the operation. He had another opportunity to ask any questions. Next, he was brought back to the operating room and assisted onto the OR table. General endotracheal anesthesia was induced. The anterior abdominal wall was then prepped and draped in the usual fashion. I gained access to the peritoneal cavity in the left upper quadrant. Skin was anesthetized, and a small incision was made. 5 mm optical viewing port was used to enter the peritoneum under direct vision. The peritoneum was then insufflated, and a 5 mm 30 degree scope was inserted. Next, under the vision of the laparoscope, a 12 mm port was placed in the left hemiabdomen. LigaSure was used in combination with external manipulation of the umbilical hernia to reduce the contents. It contained peritoneal fat. The hernia sac was excised around the umbilical hernia fascia. The surrounding tissue was cleared with the assistance of the LigaSure. The needle was used to map out appropriate location of the mesh patch. Appropriate diameter based off the central portion of the hernia site was about 10 cm across in all dimensions. Therefore, an 11 cm patch was selected. It was advanced into the peritoneal cavity by way of the 12 mm port, and the Piggybackr echo positioning system was used to elevate the patch up onto the underside of the anterior abdominal wall. Patch was pexied in place and four-quadrant with a laparoscopic tacker. The circumference of the patch was then secured with tacks. The positioning system was removed, and the repair site was carefully examined. There was excellent overlap, and the patch appeared very well secured. Surgical site was all hemostatic. Next, under direct vision of the laparoscope, intraoperative tap blocks were performed on the left and right sides using local anesthetic mixed with Exparel. The 12 mm port was then removed, the fascia was closed with an 0 Vicryl suture. The 5 mm port was removed. Port sites were hemostatic. Skin was closed with subcuticular stitches, and Band-Aids were applied. The patient was then awakened from anesthesia and transferred to the recovery unit.
[2024-04-16] VITALS (29 sets, daily range): BP systolic 105–139; BP diastolic 59–85; PULSE 63–81; RESP 14–22; TEMP 36.4–36.7; O2SAT 92–98; BMI 35.6
[2024-04-16] MEDS: Lactated Ringers 1,000 ML 80 ML IV (06:44)
[2024-04-16] MEDS: Acetaminophen 500 MG TAB 1000 MG PO (06:44)
[2024-04-16] MEDS: Celecoxib 200 MG CAP PO (06:44)
[2024-04-16] MEDS: Gabapentin 300 MG CAP 600 MG PO (06:44)
--- NOTE | 2024-04-16 06:49 | W.ANESPRE ---
General Info Date of Service Date Performed: 04/16/24 Height: 6 ft 2 in Weight: 125.9 kg Body Mass Index (BMI): 35.6 Surgical Procedure: Operation Date: 04/16/24 07:40 Proposed Procedure Side Surgeon p Herniorrhaphy Umbilical Alban Guajardo MD Meds Allergies and Home Medications Allergies Allergy/AdvReac Type Severity Reaction Status Date / Time HAY FEVER Allergy Unknown unknown Uncoded 04/16/24 06:21 Home Medication Medication Instructions Recorded diphenhydramine HCl 25 mg tablet 25 mg PO DAILY PRN 02/05/13 (Benadryl Allergy) multivitamin (Daily Multi-Vitamin 1 ea PO DAILY 02/05/13 tablet) loratadine 10 mg capsule (Claritin 10 mg PO PRN 09/05/21 Liqui-Gel) hydrochlorothiazide 25 mg tablet 25 mg PO DAILY #90 tabs 05/14/23 Saccharomyces boulardii 250 mg 250 mg PO BID 08/29/23 capsule (Daily Probiotic (S. boulardii)) sildenafil 50 mg tablet (Viagra) 50 mg PO DAILY PRN sexual activity 08/29/23 #10 tabs losartan 50 mg tablet 50 mg PO DAILY #90 tabs 02/14/24 prednisone 5 mg tablet 5 mg PO BID #180 tabs 03/12/24 Current Visit Medications: Current Medications Generic Name Dose Route Start Last Admin Trade Name Freq PRN Reason Stop Dose Admin Acetaminophen 1,000 mg 04/16/24 06:00 04/16/24 06:44 Acetaminophen 500 Mg Tab PO 05/15/24 23:59 1,000 mg PREOP EUGENE Administration Celecoxib 200 mg 04/16/24 06:00 04/16/24 06:44 Celecoxib 200 Mg Cap PO 05/15/24 23:59 200 mg PREOP EUGENE Administration Gabapentin 600 mg 04/16/24 06:00 04/16/24 06:44 Gabapentin 300 Mg Cap PO 05/15/24 23:59 600 mg PREOP EUGENE Administration Hydromorphone HCl 0.2 mg 04/15/24 16:17 Hydromorphone 2 Mg/Ml Syr IVP 05/15/24 16:16 Q1H PRN PRN Ringer's Solution 1,000 mls @ 80 mls/hr 04/16/24 06:00 04/16/24 06:44 IV 05/15/24 23:59 80 mls/hr INFUSION EUGENE Administration IV Miscellaneous Supplies 1 each 04/16/24 06:00 Iv Access IV 05/15/24 23:59 DIRECTED EUGENE Sodium Chloride 0 ml 04/16/24 06:00 Normal Saline Flush 10 Ml Syr IV 05/15/24 23:59 PRN PRN Sodium Chloride 0 ml 04/16/24 06:00 Normal Saline 10 Ml Vial IJ 05/15/24 23:59 DIRECTED PRN Sterile Water 0 ml 04/16/24 06:00 Water,Injection,Sterile 10 Ml Vial IJ 05/15/24 23:59 DIRECTED PRN Tramadol HCl 100 mg 04/15/24 16:17 Tramadol 50 Mg Tab PO 05/15/24 16:16 Q6H PRN PRN Pain PFSH Active Problems Active Problems: Problem Status Onset Code Hernia, umbilical K42.9 Erectile dysfunction N52.9 Polymyalgia rheumatica M35.3 Varicose veins of left lower extremity 02/29/16 I83.92 Continuous chewing tobacco dependence F17.220 Obesity E66.9 Essential hypertension I10 Alcohol intake above recommended sensible limits Z72.89 Primary osteoarthritis, right shoulder M19.011 Biceps tendinitis of right shoulder M75.21 Medical History Medical History COVID 10/10 vaccinated Separation of right acromioclavicular joint, type 3 (11/23/17) Chest pain NEG STRESS TEST 2002 Surgical History Surgical History History of colonoscopy (~06/2023) S/P repair of hydrocele right Status post right inguinal hernia repair Tobacco Smoking/Tobacco Use Status: Current every day Tobacco Type: smokeless tobacco Smokeless tobacco user: chewing tobacco Passive smoking exposure: Yes Second hand exposure: Yes Alcohol Alcohol Intake: current Alcohol intake frequency: a few times a week Alcohol type: beer Details: reports 6-12 beers/day Substance Use Substance use: Never Substance use type: does not use Vital Signs and Lab Results Vital Signs Most Recent Vital Signs in EMR: Most Recent Vital Signs Temp Pulse Resp BP Pulse Ox 36.5 C 71 16 139/85 98 04/16/24 06:40 04/16/24 06:40 04/16/24 06:40 04/16/24 06:40 04/16/24 06:40 Lab Results Blood Type / Crossmatch: No Data to Display Complete Blood Count: No Data to Display Complete Metabolic Panel: No Data to Display Liver Function Panel: No Data to Display Coagulation Panel: No Data to Display Cardiac Panel: No Data to Display Arterial Blood Gas: No Data to Display Venous Blood Gas: No Data to Display Pancreas Panel: No Data to Display Thyroid Panel: No Data to Display Infectious Disease: No Data to Display Blood Cultures: No Data to Display Toxicology Panel: No Data to Display Anesthesia Assessment and Plan Anesthesia History Personal History: No History of Anesthesia Complications Family History: No Family History of Anesthesia Complications Exercise Tolerance Exercise Tolerance: Metabolic Equivalents>4 Pertinent Negatives Pertinent Negatives: No Symptoms of GERD (Intermittent symptoms at times, none today), No Major Cardiovascular Symptoms or Complaints and No Major Pulmonary Symptoms or Complaints Cardiac & Pulmonary Exam Cardiac Exam: Normal S1/S2 Heart Sounds Pulmonary Exam: Clear Bilateral Breath Sounds Implantable Cardiac Device Does patient have a Pacemaker or an ICD?: No Airway Exam Known Difficult Airway: No Mallampati Class: 2 Mouth Opening: Normal (> 3cm) Thyromental Distance: Greater than 3 cm Neck Range of Motion: Full ROM Neck Circumference: Thick Teeth Condition: Normal Dentition ASA Classification ASA Score: ASA 2 Emergency Case?: No NPO Status NPO Status: NPO Clears >2 hours, Solids >8 hours Anesthesia Plan Resuscitation Status: Full Code Anesthesia Technique: General Anesthesia Airway Planned: LMA Monitors Used: Standard Monitors
[2024-04-16] MEDS: ceFAZolin 2 GM/50 ML BAG IVPB (07:55)
[2024-04-16] MEDS: Bupivacaine 0.5% Pres-Free 30 ML VIAL (08:22)
[2024-04-16] MEDS: Bupivacaine LIPOSOME/PF 133 MG/10 ML VIAL IJ (08:22)
--- NOTE | 2024-04-16 10:23 | W.ANESPOSTOP ---
Postoperative Evaluation Date, Time and Location Date Performed: 04/16/24 Time Performed: 10:00 Patient Location: PACU Vital Signs Most Recent Imported Vital Signs: Most Recent Vital Signs Temp Pulse Resp BP Pulse Ox 36.5 C 70 16 118/77 93 04/16/24 10:00 04/16/24 10:00 04/16/24 10:00 04/16/24 10:00 04/16/24 10:00 Pain Score Most Recent Pain Score: Most Recent Pain Score Pain Level 3 04/16/24 10:00 Assessment Mental Status: Awake (Alert & Oriented to Patient Baseline) Airway and Respiratory Function: Patent airway with normal (patient baseline) respiratory exam Cardiovascular Function: Hemodynamically Stable Hydration Status: Adequately Hydrated Nausea & Vomiting: No Nausea or Vomiting Pain: Pain is tolerable per patient Peripheral Nerve Block: Patient did not receive a nerve block
== END 2024-04-16 10:55 | disposition home or self-care (01) ==
PROVIDERS: PCP Nurse Practitioner Family; Visit Provider Surgery
PROC: (CPT 49650; principal; 2024-04-16 07:30)
DX: K42.9 Umbilical hernia without obstruction or gangrene (principal); I10 Essential (primary) hypertension
CPT/HCPCS: 49615; C1781; C9290; J0665; J0690; J1100; J2001; J2405; J2704; J3010

== ENCOUNTER 2024-09-08 09:00 | Outpatient (CLI) | payer BC, SELFPAY ==
[2024-09-08 07:47] LABS: Hemoglobin A1C 5.5 % (<5.7)
[2024-09-08 07:55] LABS: CREATININE 1.2 mg/dL (0.70-1.30); Calculated LDL 83 mg/dL (<100); Cholesterol 172 mg/dL (<200); Estimated GFR 73.67 (mL/min/1.73m2); HDL Cholesterol 64 mg/dL (40-60); Potassium 4.3 mmol/L (3.5-5.1); Triglyceride 128 mg/dL (<150)
[2024-09-08 18:06] LABS: PSA, Screening 0.6 ng/mL (<=3.5)
== END 2024-09-08 09:01 | disposition home or self-care (01) ==
LOC: LBO 09:00
PROVIDERS: PCP Nurse Practitioner Family; Visit Provider Nurse Practitioner Family
DX: Z13.1 Encounter for screening for diabetes mellitus (principal); Z12.5 Encounter for screening for malignant neoplasm of prostate; Z13.220 Encounter for screening for lipoid disorders; I10 Essential (primary) hypertension
CPT/HCPCS: 36415; 80061; 84153; 82565; 83036; 84132

== ENCOUNTER 2025-09-09 03:33 | Outpatient (CLI) | payer BC, SELFPAY ==
[2025-09-09 14:23] LABS: Anion Gap 9.6 mmol/L (3-11); BUN 12 mg/dL (9-23); CO2 25.4 mmol/L (20.0-31.0); Calcium 9.3 mg/dL (8.3-10.6); Chloride 109 mmol/L (98-107); Glucose 104 mg/dL (74-106); Potassium 4.2 mmol/L (3.5-5.1); Sodium 144 mmol/L (136-145)
[2025-09-09 22:58] LABS: PSA, Screening 0.5 ng/mL (<=3.5)
== END 2025-09-09 03:34 | disposition home or self-care (01) ==
LOC: LOS 03:33
PROVIDERS: PCP Nurse Practitioner Family; Visit Provider Nurse Practitioner Family
DX: Z12.5 Encounter for screening for malignant neoplasm of prostate (principal); I10 Essential (primary) hypertension
CPT/HCPCS: 36415; 80048; 84153